=== PATIENT | female | born 1985 | race Caucasian/White ===

== ENCOUNTER 2016-05-24 16:18 | Emergency (ER) | payer BC ==
[2016-05-24] MEDS ORDERED: ONDANSETRON 4 MG TAB.RAPDIS PO ONE (16:33)
--- NOTE | 2016-05-24 16:35 | ER Document Report ---
ED Medical Screen (RME) - General Mode of Arrival: Ambulatory Information source: Patient TRAVEL OUTSIDE OF THE [place] IN LAST 30 DAYS: No <LESLIE PEARL - Last Filed: 05/24/16 16:32> <SABI RICK - Last Filed: 05/24/16 18:23> - General Stated Complaint: NAUSEA Notes: Patient presents to the emergency department with complaints of nausea vomiting and left-sided flank pain. With a history of kidney stones. Denies trauma reports low-grade fever. Contacted her urologist in [place] and was told to come here. Reports decreased urinary output even though she is drinking fluids. I have greeted and performed a rapid initial assessment of this patient. A comprehensive ED assessment and evaluation of the patient, analysis of test results and completion of the medical decision making process will be conducted by additional ED providers. (LESLIE PEARL) - Related Data Allergies/Adverse Reactions: clindamycin [Clindamycin] Allergy (Severe, Verified 05/24/16 16:31) rash Coconut * [Coconut] Allergy (Severe, Verified 05/24/16 16:31) throat swells Penicillins Allergy (Severe, Verified 05/24/16 16:31) rash Sulfa (Sulfonamide Antibiotics) Allergy (Severe, Verified 05/24/16 16:31) rash latex [Latex] Allergy (Unknown, Verified 05/24/16 16:31) rash,hands swell tramadol Allergy (Verified 05/24/16 16:31) BLACKBERRIES Allergy (Mild, Uncoded 05/24/16 16:31) MILD RASH ALL OVER Past Medical History - Past Medical History Cardiac Medical History: Reports: Hx Hypertension - MEDICATED Denies: Hx Congestive Heart Failure, Hx Coronary Artery Disease, Hx Heart Attack Pulmonary Medical History: Denies: Hx Asthma, Hx Bronchitis, Hx COPD, Hx Pneumonia, Hx Tuberculosis Neurological Medical History: Denies: Hx Cerebrovascular Accident, Hx Seizures Endocrine Medical History: Reports: Hx Hypothyroidism Renal/ Medical History: Reports: Hx Kidney Stones. Denies: Hx End Stage Renal Disease GI Medical History: Denies: Hx Cirrhosis, Hx Gastroesophageal Reflux Disease, Hx Hepatitis, Hx Hiatal Hernia, Hx Ulcer Musculoskeltal Medical History: Reports Hx Arthritis - RA, Denies Hx Multiple Sclerosis Psychiatric Medical History: Reports: Hx Depression Denies: Hx Bipolar Disorder, Hx Schizophrenia Infectious Medical History: Denies: Hx Hepatitis Past Surgical History: Reports: Hx Section - X3, Hx Cholecystectomy, Hx Orthopedic Surgery - L knee, Hx Tonsillectomy. Denies: Hx Hysterectomy, Hx Mastectomy, Hx Open Heart Surgery, Hx Pacemaker - Immunizations Immunizations up to date: Yes Hx Diphtheria, Pertussis, Tetanus Vaccination: Yes <LESLIE PEARL - Last Filed: 05/24/16 16:32> Course - Laboratory Result Diagrams: 05/24/16 16:35 05/24/16 16:35 - Diagnostic Test Radiology reviewed: Image reviewed, Reports reviewed <SABI RICK - Last Filed: 05/24/16 18:23> - Vital Signs Vital signs: Temp Pulse Resp BP Pulse Ox 98.7 F 80 20 137/82 H 100 05/24/16 16:30 05/24/16 16:30 05/24/16 16:45 05/24/16 16:30 05/24/16 16:30 - Laboratory Laboratory results interpreted by me: 05/24/16 05/24/16 16:35 16:35 WBC 3.2 L Hct 35.6 L RDW 14.1 H Absolute Neutrophils 1.6 L AST 41 H
[2016-05-24 16:54] LABS: APPEARANCE,URINE SLIGHTLY-CLOUDY; BILIRUBIN,URINE NEGATIVE (NEGATIVE); GLUCOSE, URINE NEGATIVE (NEGATIVE); KETONES,URINE NEGATIVE (NEGATIVE); LEUKOCYTE ESTERASE,URINE NEGATIVE (NEGATIVE); NITRITE,URINE NEGATIVE (NEGATIVE); PROTEIN,URINE NEGATIVE (NEGATIVE); URINE SPECIFIC GRAVITY 1.013; UROBILINOGEN,URINE NEGATIVE mg/dL (<2.0)
[2016-05-24 16:57] LABS: ABSOLUTE EOSINOPHILS # (AUTO) 0.1 10^3/uL (0.0-0.6); ABSOLUTE LYMPHOCYTES (AUTO) 1.1 10^3/uL (0.5-4.7); ABSOLUTE MONOCYTES (AUTO) 0.4 10^3/uL (0.1-1.4); ABSOLUTE NEUT (AUTO) 1.6 10^3/uL (1.7-8.2); BASOPHILS % (AUTO) 1.3 % (0-2); EOSINOPHILS % (AUTO) 2.1 % (0-6); HEMATOCRIT 35.6 % (36.0-47.0); HEMOGLOBIN 12.2 g/dL (12.0-15.5); LYMPHOCYTES % (AUTO) 35.2 % (13-45); MEAN CORPUSCULAR HEMOGLOBIN 31.6 pg (27.0-33.4); MEAN CORPUSCULAR HGB CONC 34.2 g/dL (32.0-36.0); MEAN CORPUSCULAR VOLUME 92 fl (80-97); MONOCYTES % (AUTO) 11.4 % (3-13); RED BLOOD COUNT 3.86 10^6/uL (3.72-5.28); RED CELL DISTRIBUTION WIDTH 14.1 % (11.5-14.0); WHITE BLOOD COUNT 3.2 10^3/uL (4.0-10.5)
[2016-05-24 17:10] LABS: ALANINE AMINOTRANSFERASE 48 U/L (9-52); ALBUMIN 4.1 g/dL (3.5-5.0); ALKALINE PHOSPHATASE 78 U/L (38-126); ANION GAP 9 (5-19); ASPARTATE AMINO TRANSFERASE 41 U/L (14-36); BILIRUBIN,TOTAL 0.6 mg/dL (0.2-1.3); BLOOD UREA NITROGEN 11 mg/dL (7-20); CALCIUM 9.1 mg/dL (8.4-10.2); CARBON DIOXIDE 26 mmol/L (22-30); CHLORIDE 107 mmol/L (98-107); CREATININE RESULT 1.01 mg/dL (0.52-1.25); GLUCOSE 98 mg/dL (75-110); POTASSIUM 4.2 mmol/L (3.6-5.0); SODIUM 142.1 mmol/L (137-145); TOTAL PROTEIN 6.9 g/dL (6.3-8.2)
[2016-05-24] MEDS ORDERED: ONDANSETRON HCL 8 MG TABLET PO ONE (17:25)
[2016-05-24] MEDS ORDERED: OXYCODONE-ACETAMINOPHEN 5-325 MG TABLET PO ONE (17:27)
[2016-05-24] MEDS ORDERED: METOCLOPRAMIDE HCL 10 MG TABLET PO ONE (17:27)
--- NOTE | 2016-05-24 18:25 | ER Document Report ---
ED GI/ - General Chief Complaint: Flank Pain Stated Complaint: NAUSEA Mode of Arrival: Ambulatory Notes: Patient is experiencing left "kidney pain" that began last night. She's had this same type of pain previously that have been attributable to kidney stones. She passed her last stone about 6 months ago. She's had internal procedures to remove stones. She's also had nausea and vomiting and thinks she may have had a fever last night. She contacted her urologist ([facility]) in [place] who advised her to come here for care this afternoon. Patients had her tubes tied and is also lumbar control pills to regulate her period. TRAVEL OUTSIDE OF THE [place] IN LAST 30 DAYS: No - Related Data Allergies/Adverse Reactions: clindamycin [Clindamycin] Allergy (Severe, Verified 05/24/16 16:31) rash Coconut * [Coconut] Allergy (Severe, Verified 05/24/16 16:31) throat swells Penicillins Allergy (Severe, Verified 05/24/16 16:31) rash Sulfa (Sulfonamide Antibiotics) Allergy (Severe, Verified 05/24/16 16:31) rash latex [Latex] Allergy (Unknown, Verified 05/24/16 16:31) rash,hands swell tramadol Allergy (Verified 05/24/16 16:31) BLACKBERRIES Allergy (Mild, Uncoded 05/24/16 16:31) MILD RASH ALL OVER Past Medical History - General Information source: Patient - Social History Smoking Status: Unknown if Ever Smoked Cigarette use (# per day): No Chew tobacco use (# tins/day): No Frequency of alcohol use: None Drug Abuse: None Family History: Reviewed & Not Pertinent Patient has suicidal ideation: No Patient has homicidal ideation: No - Past Medical History Cardiac Medical History: Reports: Hx Hypertension - MEDICATED Neurological Medical History: Denies: Hx Cerebrovascular Accident, Hx Seizures Endocrine Medical History: Reports: Hx Hypothyroidism Renal/ Medical History: Reports: Hx Kidney Stones Musculoskeltal Medical History: Reports Hx Arthritis - RA, Reports Hx Fibromyalgia, Reports Other - Has mixed connective tissue disease. Psychiatric Medical History: Reports: Hx Anxiety, Hx Depression Past Surgical History: Reports: Hx Section - X3, Hx Cholecystectomy, Hx Orthopedic Surgery - L knee, Hx Tonsillectomy, Hx Tubal Ligation - Immunizations Immunizations up to date: Yes Hx Diphtheria, Pertussis, Tetanus Vaccination: Yes Review of Systems - Review of Systems Notes: REVIEW OF SYSTEMS: CONSTITUTIONAL : Thinks he's had a fever. EENT: Denies eye, ear, nose or mouth or throat pain or other symptoms. CARDIOVASCULAR: Denies chest pain. RESPIRATORY: Denies cough, chest congestion, or shortness of breath. GASTROINTESTINAL: See history of present illness. GENITOURINARY: Denies difficulty or painful urinating, urinary frequency, blood in urine. MUSCULOSKELETAL: Denies back or neck pain. Denies joint pain or swelling. SKIN: Denies rash or skin lesions. NEUROLOGICAL: Denies LOC or altered mental status. Denies headache. Denies sensory loss or motor deficits. ALL OTHER SYSTEMS REVIEWED AND NEGATIVE. Physical Exam - Vital signs Vitals: Temp Pulse Resp BP Pulse Ox 98.7 F 80 20 137/82 H 100 05/24/16 16:30 05/24/16 16:30 05/24/16 16:30 05/24/16 16:30 05/24/16 16:30 Interpretation: Normal - Notes Notes: PHYSICAL EXAMINATION: GENERAL: Well-appearing, in no acute distress. Vital signs are all normal. HEAD: Atraumatic, normocephalic. NECK: Normal range of motion, supple. LUNGS: Breath sounds clear and equal bilaterally. HEART: Regular rate and rhythm without murmurs. ABDOMEN: Soft, nontender. No guarding or rebound. No masses felt. No bruits heard. BACK: Except for some mild left paralumbar muscle tenderness to palpate there is no tenderness throughout entire back. EXTREMITIES: Normal range of motion without pain. NEUROLOGICAL: Normal speech, normal gait. Normal sensory, motor, and reflex exams. Awake, alert, and oriented x3. Cranial nerves normal. SKIN: Warm, dry, no rashes. Course - Re-evaluation Re-evalutation: 05/24/16 18:25 Labs including urinalysis essentially normal. - Vital Signs Vital signs: Temp Pulse Resp BP Pulse Ox 98.4 F 87 16 128/85 H 98 05/24/16 18:38 05/24/16 18:38 05/24/16 18:38 05/24/16 18:38 05/24/16 18:38 - Laboratory Result Diagrams: 05/24/16 16:35 05/24/16 16:35 Laboratory results interpreted by me: 05/24/16 05/24/16 16:35 16:35 WBC 3.2 L Hct 35.6 L RDW 14.1 H Absolute Neutrophils 1.6 L AST 41 H - Diagnostic Test Radiology reviewed: Image reviewed, Reports reviewed - CT stone survey shows tiny, punctate, nonobstructing calcifications in the calyceal system of both kidneys. No ureteral stones or calcifications seen and no hydroureter present. Discharge - Discharge Clinical Impression: Left flank pain, Renal calcification Condition: Stable Disposition: HOME, SELF-CARE Additional Instructions: Flank Pain We weren't able to prove an exact cause for your flank pain. Pain in the flank can be caused by a muscle strain or spasm. Sometimes a kidney stone causes pain, but can't be found on our tests. Infection in the kidney should be evident on a urine test. Early shingles can occasionally cause flank pain, without the rash that proves the diagnosis. On rare occasions, disease of the pancreas, aorta, spleen, or colon can create pain in the flank. At this time, there's no evidence of a dangerous condition, and it seems safe for you to be at home. If the pain goes away and does not come back, no further testing will be needed. If pain persists, or becomes more severe, we may need to repeat some tests or order additional new testing. Blood in the urine, urgency to urinate frequently, and pain that radiates to the groin can indicate a kidney stone. Fever may mean that the pain is due to infection, either of the kidney or the colon (diverticulitis). If your pain is early shingles, you should develop an eruption of blisters in the painful area within a few days. Call the doctor or return if you have pain that is spreading or becoming more severe, pain that does not resolve with time, fever, or any other new symptoms. NORMAL EXAM AND WORKUP: At this time, your examination and workup show no significant abnormality. No significant abnormal physical findings are noted. All laboratory, EKG, and imaging (x-ray, CT scans, ultrasound) studies that were ordered show no significant abnormality. Although your examination and all studies that were ordered showed no significant abnormal finding, there are no examinations and no studies that are 100% accurate. There is always the possibility that some abnormality could exist and not be detected with physical examination or within the limits and capabilities of laboratory and other studies. You should return or follow up as you were instructed on your visit today for further evaluation if your symptoms do not resolve. ANTINAUSEA MEDICATION: You have been given a medication to suppress nausea and vomiting. This type of medication can be given as a shot, pill, or suppository. It will usually last for many hours. Pills and shots usually last six to eight hours, suppositories last about 12 hours. For the typical illness, only one or two doses of the medication may be necessary. Mild lightheadedness may occur. This type of medicine can cause drowsiness. Do not drive or operate dangerous machinery while under its influence. Do not mix with alcohol. See your doctor at once if you have muscle spasms or tightness, or uncontrollable motions (particularly of the neck, mouth, or jaw). Persistent vomiting or severe lightheadedness should also be evaluated by the physician. ORAL NARCOTIC MEDICATION: You have been given a prescription for pain control. This medication is a narcotic. It's best taken with food, as nausea can result if taken on an empty stomach. Don't operate machinery or drive within six hours of taking this medication. Do not combine this medicine with alcohol, or with any medication which can cause sedation (such as cold tablets or sleeping pills) unless you get permission from the physician. Narcotics tend to cause constipation. If possible, drink plenty of fluids and eat a diet high in fiber and fruits. FOLLOW-UP CARE: If you have been referred to a physician for follow-up care, call the physician s office for an appointment as you were instructed or within the next two days. If you experience worsening or a significant change in your symptoms, notify the physician immediately or return to the Emergency Department at any time for re-evaluation. Follow-up with your urologist ([facility]) in [place] tomorrow. Prescriptions: Ondansetron [Zofran Odt 4 mg Tablet] 1 - 2 tab PO Q4HP PRN #10 tab.rapdis PRN Reason: For Nausea/Vomiting Oxycodone HCl/Acetaminophen [Percocet 5-325 mg Tablet] 1 - 2 tab PO Q4HP PRN # 10 tablet PRN Reason: Referrals: TOÑO GALLAGHER MD [Primary Care Provider] - Follow up as needed
[2016-05-24 18:41] VITALS: BP 128/85
== END 2016-05-24 18:42 | disposition home or self-care (01) ==
LOC: ER 16:18
DX: N28.89 Other specified disorders of kidney and ureter (principal); R11.2 Nausea with vomiting, unspecified; R10.9 Unspecified abdominal pain; M79.7 Fibromyalgia; I10 Essential (primary) hypertension; E03.9 Hypothyroidism, unspecified; Z87.442 Personal history of urinary calculi; Z98.51 Tubal ligation status; Z79.3 Long term (current) use of hormonal contraceptives; Z88.3 Allergy status to other anti-infective agents; Z88.0 Allergy status to penicillin; Z88.2 Allergy status to sulfonamides; Z91.040 Latex allergy status; Z90.49 Acquired absence of other specified parts of digestive tract
CPT/HCPCS: 99284; 36415; 84703; 85025; 80053; 81001; 76380; S0119 ×2

== ENCOUNTER 2016-09-12 13:07 | Emergency (ER) | payer BC ==
[2016-09-12 13:23] VITALS: BP 128/90
[2016-09-12] MEDS ORDERED: METOCLOPRAMIDE HCL INJ/PF 10 MG/2 ML SDV IV ONE (13:47)
[2016-09-12] MEDS ORDERED: KETOROLAC TROMETHAMINE INJ/PF 30 MG/1 ML SDV IV ONE (13:47)
[2016-09-12] MEDS ORDERED: DIPHENHYDRAMINE HCL 50 MG/ML VIAL IV ONE (13:47)
[2016-09-12] MEDS ORDERED: NORMAL SALINE 1000 ML 1,000 ML IV ONE (13:47)
--- NOTE | 2016-09-12 13:56 | ER Document Report ---
ED Headache - General Chief Complaint: Nausea/Vomiting Stated Complaint: VOMITING Time Seen by Provider: 09/12/16 13:42 Notes: The patient is a 30-year-old female, past medical history fibromyalgia, connective tissue disease, chronic pain, migraines, presents with usual frontal headache that started yesterday. She is also having nausea and feels like her left side is weak. She denies vomiting, abdominal pain, blurry vision, neck stiffness, fevers, chest pain, shortness of breath, numbness or tingling. TRAVEL OUTSIDE OF THE [place] IN LAST 30 DAYS: No - Related Data Allergies/Adverse Reactions: clindamycin [Clindamycin] Allergy (Severe, Verified 09/12/16 13:18) rash Coconut * [Coconut] Allergy (Severe, Verified 09/12/16 13:18) throat swells Penicillins Allergy (Severe, Verified 09/12/16 13:18) rash Sulfa (Sulfonamide Antibiotics) Allergy (Severe, Verified 09/12/16 13:18) rash latex [Latex] Allergy (Unknown, Verified 09/12/16 13:18) rash,hands swell tramadol Allergy (Verified 09/12/16 13:18) BLACKBERRIES Allergy (Mild, Uncoded 09/12/16 13:18) MILD RASH ALL OVER Past Medical History - General Information source: Patient - Social History Smoking Status: Never Smoker Chew tobacco use (# tins/day): No Frequency of alcohol use: None Drug Abuse: None Family History: Reviewed & Not Pertinent Patient has suicidal ideation: No Patient has homicidal ideation: No - Past Medical History Cardiac Medical History: Reports: Hx Hypertension - MEDICATED Denies: Hx Congestive Heart Failure, Hx Coronary Artery Disease, Hx Heart Attack Pulmonary Medical History: Denies: Hx Asthma, Hx Bronchitis, Hx COPD, Hx Pneumonia, Hx Tuberculosis Neurological Medical History: Denies: Hx Cerebrovascular Accident, Hx Seizures Endocrine Medical History: Reports: Hx Hypothyroidism Renal/ Medical History: Reports: Hx Kidney Stones. Denies: Hx End Stage Renal Disease, Hx Peritoneal Dialysis GI Medical History: Denies: Hx Cirrhosis, Hx Gastroesophageal Reflux Disease, Hx Hepatitis, Hx Hiatal Hernia, Hx Ulcer Musculoskeltal Medical History: Reports Hx Arthritis - RA, Reports Hx Fibromyalgia, Denies Hx Multiple Sclerosis Psychiatric Medical History: Reports: Hx Anxiety, Hx Depression Denies: Hx Bipolar Disorder, Hx Schizophrenia Infectious Medical History: Denies: Hx Hepatitis Past Surgical History: Reports: Hx Section - X3, Hx Cholecystectomy, Hx Orthopedic Surgery - L knee, Hx Tonsillectomy, Hx Tubal Ligation. Denies: Hx Hysterectomy, Hx Mastectomy, Hx Open Heart Surgery, Hx Pacemaker - Immunizations Immunizations up to date: Yes Hx Diphtheria, Pertussis, Tetanus Vaccination: Yes Review of Systems - Review of Systems Notes: REVIEW OF SYSTEMS: CONSTITUTIONAL: -fevers, -chills EENT: -eye pain, -difficulty swallowing, -nasal congestion CARDIOVASCULAR:-chest pain, -syncope. RESPIRATORY: -cough, -SOB GASTROINTESTINAL: -abdominal pain, +nausea, -vomiting, -diarrhea GENITOURINARY: -dysuria, -hematuria MUSCULOSKELETAL: -back pain, -neck pain SKIN: -rash or skin lesions. HEMATOLOGIC: -easy bruising or bleeding. LYMPHATIC: -swollen, enlarged glands. NEUROLOGICAL: -altered mental status or loss of consciousness, +headache PSYCHIATRIC: -anxiety, -depression. ALL OTHER SYSTEMS REVIEWED AND NEGATIVE. Physical Exam - Vital signs Vitals: Temp Pulse Resp BP Pulse Ox 98.2 F 99 16 128/90 H 99 09/12/16 13:22 09/12/16 13:22 09/12/16 13:22 09/12/16 13:22 09/12/16 13:22 - Notes Notes: PHYSICAL EXAMINATION: GENERAL: Well-appearing, well-nourished and in no acute distress. HEAD: Atraumatic, normocephalic. EYES: Pupils equal round and reactive to light, extraocular movements intact, sclera anicteric, conjunctiva are normal. ENT: nares patent, oropharynx clear without exudates. Moist mucous membranes. NECK: Normal range of motion, supple without lymphadenopathy LUNGS: Breath sounds clear to auscultation bilaterally and equal. No wheezes rales or rhonchi. HEART: Regular rate and rhythm without murmurs ABDOMEN: Soft, nontender, normoactive bowel sounds. No guarding, no rebound. No masses appreciated. EXTREMITIES: Normal range of motion, no pitting or edema. No cyanosis. NEUROLOGICAL: Cranial nerves grossly intact. Normal speech, normal gait. Normal sensory and motor exams. 5/5 strength in all 4 extremities. PSYCH: Normal mood, normal affect. SKIN: Warm, Dry, normal turgor, no rashes or lesions noted. Course - Re-evaluation Re-evalutation: Patient headache is exactly the same as her prior headaches. After headache cocktail, patient feels much better. She does not have any loss of strength on exam. Do not suspect meningitis, ICH or SAH at this time. Instructed her to follow-up with her primary care physician for further evaluation and treatment. She will take anti-inflammatories to help prevent a rebound headache. - Vital Signs Vital signs: Temp Pulse Resp BP Pulse Ox 98.2 F 99 16 128/90 H 99 09/12/16 13:22 09/12/16 13:22 09/12/16 13:22 09/12/16 13:22 09/12/16 13:22 Discharge - Discharge Clinical Impression: Headache Qualifiers: Headache type: unspecified Headache chronicity pattern: chronic headache Intractability: not intractable Qualified Code(s): R51 - Headache Condition: Stable Disposition: HOME, SELF-CARE Additional Instructions: HEADACHE: The physician does not feel that the headache you are experiencing has a serious underlying cause. Most headaches are due to emotional stress, with resultant muscle tension (tension headache). Occasionally, headaches are secondary to changes in the blood vessels of the scalp (vascular headache and migraine headache). Sometimes, a headache is the first symptom of another developing illness, such as a viral infection. You have no evidence of stroke, bleeding, meningitis, or other serious cause of your headache. The treatment of headaches varies with the severity and cause of the pain. Not all headaches need pain shots. In fact, there is evidence that using narcotics for headaches may make them worse in the long run. The physician will determine the therapy that's in your best interest. If you develop a fever, if the headache is different from any you've previously experienced, or if the headache progressively worsens, then call your physician at once or go to the emergency room. REGLAN (METOCLOPRAMIDE): Reglan has been prescribed. This medicine affects the stomach and intestines. It can be used to treat nausea and vomiting, to prevent reflux of stomach acid up into the esophagus, or to increase the contractions of the stomach and intestines. It is often prescribed for esophagitis, and for paralysis of the stomach in diabetics. Reglan can cause either mild restlessness or drowsiness. You should contact the doctor at once if you become extremely restless, anxious, or cannot sleep, or if you develop uncontrollable motions of the lips, tongue, or jaw. Do not take alcohol with this medicine. Do not drive or operate machinery until you have been taking this medicine long enough to know how it affects you. Call the doctor if you develop abdominal pains, lightheadedness, black stool, or blood in the stool or vomitus. USE OF DIPHENHYDRAMINE: Diphenhydramine (Benadryl) is an antihistamine and has been recommended to help treat your headache and to prevent side effects of other medications used to treat headaches. The medication can be repeated four times daily. Age Elixir (12.5 mg/tsp) 25 mg pill adult 1-2 tabs Antihistamines may cause drowsiness, especially with the first dose. Do not operate machinery or drive while under the effects of the medication. Do not combine the medication with alcohol, or with any other medication without talking to your doctor. TORADOL INJECTION: You have been given an injection of ketorolac tromethamine (Toradol). This is an excellent, safe drug for pain control. It also has potent antiinflammatory action. You should have significant pain relief within about one hour. Toradol is not addicting and is non-sedating. It does not interfere with driving or work. Call or return if you develop itching, hives, shortness of breath, or rash. FOLLOW-UP CARE: If you have been referred to a physician for follow-up care, call the physician s office for an appointment as you were instructed or within the next two days. If you experience worsening or a significant change in your symptoms, notify the physician immediately or return to the Emergency Department at any time for re-evaluation.
== END 2016-09-12 15:27 | disposition home or self-care (01) ==
LOC: ER 13:07
DX: R51 Headache (principal); R11.0 Nausea; I10 Essential (primary) hypertension; Z88.1 Allergy status to other antibiotic agents; Z88.0 Allergy status to penicillin; Z88.2 Allergy status to sulfonamides; Z88.5 Allergy status to narcotic agent; Z91.018 Allergy to other foods; Z91.040 Latex allergy status
CPT/HCPCS: 99283; 96374; 96375; J1200; J1885; J2765; J7030

== ENCOUNTER → 2016-09-22 | Outpatient (CLI) | payer BC ==
[2016-09-22 12:26] LABS: ABSOLUTE EOSINOPHILS # (AUTO) 0.1 10^3/uL (0.0-0.6); ABSOLUTE LYMPHOCYTES (AUTO) 0.7 10^3/uL (0.5-4.7); ABSOLUTE MONOCYTES (AUTO) 0.1 10^3/uL (0.1-1.4); ABSOLUTE NEUT (AUTO) 1.5 10^3/uL (1.7-8.2); BASOPHILS % (AUTO) 1.3 % (0-2); EOSINOPHILS % (AUTO) 3.4 % (0-6); HEMOGLOBIN 12.9 g/dL (12.0-15.5); HGB HCT DIFFERENCE 0.7; LYMPHOCYTES % (AUTO) 26.9 % (13-45); MEAN CORPUSCULAR HEMOGLOBIN 32.3 pg (27.0-33.4); MEAN CORPUSCULAR HGB CONC 33.9 g/dL (32.0-36.0); MEAN CORPUSCULAR VOLUME 95 fl (80-97); MONOCYTES % (AUTO) 5.8 % (3-13); RED BLOOD COUNT 3.98 10^6/uL (3.72-5.28); RED CELL DISTRIBUTION WIDTH 14.1 % (11.5-14.0); SEGMENTED NEUTROPHILS % (AUTO) 62.6 % (42-78); WHITE BLOOD COUNT 2.5 10^3/uL (4.0-10.5)
[2016-09-22 12:48] LABS: ALANINE AMINOTRANSFERASE 37 U/L (9-52); ALKALINE PHOSPHATASE 95 U/L (38-126); ASPARTATE AMINO TRANSFERASE 29 U/L (14-36); BILIRUBIN,DIRECT 0.4 mg/dL (0.0-0.4); BILIRUBIN,TOTAL 0.6 mg/dL (0.2-1.3); C-REACTIVE PROTEIN 11.9 mg/L (<10.0); CREATININE RESULT 1.07 mg/dL (0.52-1.25); TOTAL PROTEIN 7.1 g/dL (6.3-8.2)
[2016-09-22 13:11] LABS: ERYTHROCYTE SEDIMENTATION RATE 5 mm/hr (0-20)
== END ==
LOC: OD 10:45
PROVIDERS: ATTEND Internal Medicine Rheumatology
DX: M06.09 Rheumatoid arthritis without rheumatoid factor, multiple sites (principal); R79.89 Other specified abnormal findings of blood chemistry; Z79.899 Other long term (current) drug therapy
CPT/HCPCS: 36415; 80076; 82565; 85025; 85652; 86140

== ENCOUNTER 2016-09-26 19:02 | Emergency (ER) | payer BC ==
--- NOTE | 2016-09-26 19:42 | ER Document Report ---
HPI - HPI Patient complains to provider of: right foot pain Pain Level: 4 Context: 30 yo female c/o pain to right foot. was pushing lawnmower up a ditch, lawnmower rolled back and over top of foot. Associated Symptoms: None Exacerbated by: Movement, Walking Relieved by: Denies Similar symptoms previously: No Recently seen / treated by doctor: No - ROS Systems Reviewed and Negative: Yes All other systems reviewed and negative - CARDIOVASCULAR Cardiovascular: DENIES: Chest pain - REPRODUCTIVE Reproductive: DENIES: : - DERM Skin Color: [place], Erythema Past Medical History - General Information source: Patient - Social History Smoking Status: Never Smoker Frequency of alcohol use: None Drug Abuse: None Lives with: Family Family History: Reviewed & Not Pertinent - Past Medical History Cardiac Medical History: Reports: Hx Hypertension - MEDICATED Denies: Hx Congestive Heart Failure, Hx Coronary Artery Disease, Hx Heart Attack Pulmonary Medical History: Denies: Hx Asthma, Hx Bronchitis, Hx COPD, Hx Pneumonia, Hx Tuberculosis Neurological Medical History: Denies: Hx Cerebrovascular Accident, Hx Seizures Endocrine Medical History: Reports: Hx Hypothyroidism Renal/ Medical History: Reports: Hx Kidney Stones. Denies: Hx End Stage Renal Disease, Hx Peritoneal Dialysis GI Medical History: Denies: Hx Cirrhosis, Hx Gastroesophageal Reflux Disease, Hx Hepatitis, Hx Hiatal Hernia, Hx Ulcer Musculoskeltal Medical History: Reports Hx Arthritis - RA, Reports Hx Fibromyalgia, Denies Hx Multiple Sclerosis Psychiatric Medical History: Reports: Hx Anxiety, Hx Depression Denies: Hx Bipolar Disorder, Hx Schizophrenia Infectious Medical History: Denies: Hx Hepatitis Past Surgical History: Reports: Hx Section - X3, Hx Cholecystectomy, Hx Orthopedic Surgery - L knee, Hx Tonsillectomy, Hx Tubal Ligation. Denies: Hx Hysterectomy, Hx Mastectomy, Hx Open Heart Surgery, Hx Pacemaker - Immunizations Immunizations up to date: Yes Hx Diphtheria, Pertussis, Tetanus Vaccination: Yes Vertical Provider Document - CONSTITUTIONAL Agree With Documented VS: Yes Exam Limitations: No Limitations General Appearance: WD/WN, No Apparent Distress - INFECTION CONTROL TRAVEL OUTSIDE OF THE [place] IN LAST 30 DAYS: No - HEENT HEENT: Atraumatic, PERRLA - NECK Neck: Normal Inspection, Supple - RESPIRATORY Respiratory: Breath Sounds Normal, No Respiratory Distress O2 Sat by Pulse Oximetry: 100 - MUSCULOSKELETAL/EXTREMETIES Musculoskeletal/Extremeties: Tender, Eccymosis - right dorsal foot - NEURO Level of Consciousness: Awake, Alert, Appropriate Motor/Sensory: No Motor Deficit - DERM Integumentary: Warm, Dry Course - Re-evaluation Re-evalutation: 09/26/16 20:17 xray negative. results reviewed with patient. daljit wrap applied and crutch instruction given. pt stable for discharge - Vital Signs Vital signs: Temp Pulse Resp BP Pulse Ox 98.2 F 91 16 138/94 H 100 09/26/16 19:10 09/26/16 19:10 09/26/16 19:10 09/26/16 19:10 09/26/16 19:10 Procedures - Immobilization right foot Pre-Proc Neuro Vasc Exam: Normal Immobilizer type: Daljit wrap Performed by: PCT Post-Proc Neuro Vasc Exam: Normal Alignment checked and good: Yes Discharge - Discharge Clinical Impression: Contusion, foot Qualifiers: Encounter type: initial encounter Laterality: right Qualified Code(s): S90.31XA - Contusion of right foot, initial encounter Condition: Stable Disposition: HOME, SELF-CARE Instructions: Contusion ([facility]), Hematoma ([facility]), Ice & Elevation ([facility]), Ibuprofen (General) ([facility]) Additional Instructions: your xrays were negative for fracture today ice and elevate your foot wear daljit wrap for comfort and support motrin for discomfort follow up with you primary care is pain persists more than 10 days Prescriptions: Ibuprofen [Motrin 800 Mg Tablet] 800 mg PO Q6H #20 tablet Forms: Elevated Blood Pressure
--- NOTE | 2016-09-26 20:20 | RADIOLOGY REPORT (SQ) ---
EXAM DESCRIPTION: FOOT RIGHT COMPLETE COMPLETED DATE/TIME: 09/26/2016 8:11 pm REASON FOR STUDY: injury. hit with lawnmower COMPARISON: None. NUMBER OF VIEWS: Three views right foot. LIMITATIONS: None. FINDINGS: Normal bone density. Slight deformity with cortical thickening of the mid 3rd metatarsal. This is consistent with previous fracture which has healed. No acute fracture or bone lesion. No subluxation or dislocation or radiopaque foreign body. No joint effusion. OTHER: No other significant finding. IMPRESSION: Old 3rd metatarsal fracture. No acute abnormality evident. TECHNICAL DOCUMENTATION: JOB ID: [id number]
[2016-09-26 20:51] VITALS: BP 129/80
== END 2016-09-26 20:51 | disposition home or self-care (01) ==
LOC: ER 19:02
DX: S90.31XA Contusion of right foot, initial encounter (principal); M79.671 Pain in right foot; X58.XXXA Exposure to other specified factors, initial encounter
CPT/HCPCS: 99283

== ENCOUNTER → 2016-10-20 | Outpatient (CLI) | payer BC ==
[2016-10-20 11:44] LABS: ABSOLUTE EOSINOPHILS # (AUTO) 0.1 10^3/uL (0.0-0.6); ABSOLUTE LYMPHOCYTES (AUTO) 1.1 10^3/uL (0.5-4.7); ABSOLUTE MONOCYTES (AUTO) 0.3 10^3/uL (0.1-1.4); ABSOLUTE NEUT (AUTO) 1.8 10^3/uL (1.7-8.2); BASOPHILS % (AUTO) 0.8 % (0-2); HEMATOCRIT 34.1 % (36.0-47.0); HEMOGLOBIN 12.1 g/dL (12.0-15.5); HGB HCT DIFFERENCE 2.2; LYMPHOCYTES % (AUTO) 32.1 % (13-45); MEAN CORPUSCULAR HEMOGLOBIN 32.9 pg (27.0-33.4); MEAN CORPUSCULAR HGB CONC 35.7 g/dL (32.0-36.0); MEAN CORPUSCULAR VOLUME 92 fl (80-97); MONOCYTES % (AUTO) 8.1 % (3-13); RED BLOOD COUNT 3.69 10^6/uL (3.72-5.28); RED CELL DISTRIBUTION WIDTH 13.3 % (11.5-14.0); WHITE BLOOD COUNT 3.3 10^3/uL (4.0-10.5)
[2016-10-20 12:03] LABS: ALANINE AMINOTRANSFERASE 33 U/L (9-52); ALBUMIN 3.6 g/dL (3.5-5.0); ALKALINE PHOSPHATASE 99 U/L (38-126); ASPARTATE AMINO TRANSFERASE 29 U/L (14-36); BILIRUBIN,DIRECT 0.5 mg/dL (0.0-0.4); BILIRUBIN,TOTAL 0.6 mg/dL (0.2-1.3); C-REACTIVE PROTEIN 29.1 mg/L (<10.0); CREATININE RESULT 1.13 mg/dL (0.52-1.25); TOTAL PROTEIN 6.6 g/dL (6.3-8.2)
[2016-10-20 12:12] LABS: ERYTHROCYTE SEDIMENTATION RATE 15 mm/hr (0-20)
== END ==
LOC: OD 10:29
PROVIDERS: ATTEND Internal Medicine Rheumatology
DX: D72.819 Decreased white blood cell count, unspecified (principal)
CPT/HCPCS: 36415; 80076; 82565; 85025; 85652; 86140

== ENCOUNTER → 2016-11-19 | Outpatient (CLI) | payer BC ==
[2016-11-19 12:57] LABS: ABSOLUTE EOSINOPHILS # (AUTO) 0.1 10^3/uL (0.0-0.6); ABSOLUTE LYMPHOCYTES (AUTO) 1.4 10^3/uL (0.5-4.7); ABSOLUTE MONOCYTES (AUTO) 0.5 10^3/uL (0.1-1.4); ABSOLUTE NEUT (AUTO) 2.8 10^3/uL (1.7-8.2); BASOPHILS % (AUTO) 0.7 % (0-2); EOSINOPHILS % (AUTO) 1.6 % (0-6); HEMATOCRIT 37.4 % (36.0-47.0); HEMOGLOBIN 13.1 g/dL (12.0-15.5); HGB HCT DIFFERENCE 1.9; LYMPHOCYTES % (AUTO) 29.6 % (13-45); MEAN CORPUSCULAR HEMOGLOBIN 32.7 pg (27.0-33.4); MEAN CORPUSCULAR HGB CONC 35.1 g/dL (32.0-36.0); MEAN CORPUSCULAR VOLUME 93 fl (80-97); MONOCYTES % (AUTO) 9.8 % (3-13); RED BLOOD COUNT 4.02 10^6/uL (3.72-5.28); RED CELL DISTRIBUTION WIDTH 12.9 % (11.5-14.0); SEGMENTED NEUTROPHILS % (AUTO) 58.3 % (42-78); WHITE BLOOD COUNT 4.7 10^3/uL (4.0-10.5)
[2016-11-19 13:20] LABS: ALANINE AMINOTRANSFERASE 46 U/L (9-52); ALBUMIN 4.3 g/dL (3.5-5.0); ALKALINE PHOSPHATASE 105 U/L (38-126); ASPARTATE AMINO TRANSFERASE 36 U/L (14-36); BILIRUBIN,DIRECT 0.5 mg/dL (0.0-0.4); BILIRUBIN,TOTAL 0.7 mg/dL (0.2-1.3); CREATININE RESULT 1.21 mg/dL (0.52-1.25); TOTAL PROTEIN 7.3 g/dL (6.3-8.2)
[2016-11-19 13:27] LABS: C-REACTIVE PROTEIN < 5.0 mg/L (<10.0)
[2016-11-19 13:35] LABS: ERYTHROCYTE SEDIMENTATION RATE 2 mm/hr (0-20)
== END ==
LOC: OD 12:11
PROVIDERS: ATTEND Internal Medicine Rheumatology
DX: M06.09 Rheumatoid arthritis without rheumatoid factor, multiple sites (principal); R79.89 Other specified abnormal findings of blood chemistry; Z79.899 Other long term (current) drug therapy
CPT/HCPCS: 36415; 80076; 82565; 85025; 85652; 86140

== ENCOUNTER → 2016-12-10 | Outpatient (CLI) | payer BC | LOC: OD 14:15 | PROVIDERS: ATTEND Nurse Practitioner Acute Care | DX: L98.9 Disorder of the skin and subcutaneous tissue, unspecified (principal) | CPT/HCPCS: 87070; 87205 ==

== ENCOUNTER → 2016-12-22 | Outpatient (CLI) | payer BC ==
[2016-12-22 10:47] LABS: ABSOLUTE EOSINOPHILS # (AUTO) 0.1 10^3/uL (0.0-0.6); ABSOLUTE LYMPHOCYTES (AUTO) 0.7 10^3/uL (0.5-4.7); ABSOLUTE MONOCYTES (AUTO) 0.3 10^3/uL (0.1-1.4); ABSOLUTE NEUT (AUTO) 3.1 10^3/uL (1.7-8.2); BASOPHILS % (AUTO) 0.5 % (0-2); EOSINOPHILS % (AUTO) 3.1 % (0-6); HEMATOCRIT 38.7 % (36.0-47.0); HEMOGLOBIN 13.3 g/dL (12.0-15.5); HGB HCT DIFFERENCE 1.2; LYMPHOCYTES % (AUTO) 17.4 % (13-45); MEAN CORPUSCULAR HEMOGLOBIN 31.7 pg (27.0-33.4); MEAN CORPUSCULAR HGB CONC 34.4 g/dL (32.0-36.0); MEAN CORPUSCULAR VOLUME 92 fl (80-97); MONOCYTES % (AUTO) 6.6 % (3-13); SEGMENTED NEUTROPHILS % (AUTO) 72.4 % (42-78); WHITE BLOOD COUNT 4.3 10^3/uL (4.0-10.5)
[2016-12-22 11:10] LABS: ALANINE AMINOTRANSFERASE 47 U/L (9-52); ALBUMIN 4.2 g/dL (3.5-5.0); ALKALINE PHOSPHATASE 110 U/L (38-126); ASPARTATE AMINO TRANSFERASE 35 U/L (14-36); BILIRUBIN,DIRECT 0.4 mg/dL (0.0-0.4); BILIRUBIN,TOTAL 0.5 mg/dL (0.2-1.3); C-REACTIVE PROTEIN 15.2 mg/L (<10.0); CREATININE RESULT 1.07 mg/dL (0.52-1.25)
[2016-12-22 11:24] LABS: FREE T3 3.41 pg/mL (2.77-5.27)
[2016-12-22 11:27] LABS: ERYTHROCYTE SEDIMENTATION RATE 4 mm/hr (0-20)
[2016-12-22 11:38] LABS: THYROID STIMULATING HORMONE 4.38 uIU/mL (0.47-4.68)
== END ==
LOC: OD 09:52
PROVIDERS: ATTEND Internal Medicine Rheumatology
DX: M06.09 Rheumatoid arthritis without rheumatoid factor, multiple sites (principal); R79.89 Other specified abnormal findings of blood chemistry; Z79.899 Other long term (current) drug therapy
CPT/HCPCS: 36415; 80076; 82565; 84439; 84443; 84481; 85025; 85652; 86140

== ENCOUNTER → 2016-12-29 | Outpatient (CLI) | payer BC ==
[2016-12-29 09:54] LABS: HEMATOCRIT 36.5 % (36.0-47.0); HEMOGLOBIN 12.9 g/dL (12.0-15.5); HGB HCT DIFFERENCE 2.2; MEAN CORPUSCULAR HGB CONC 35.3 g/dL (32.0-36.0); MEAN CORPUSCULAR VOLUME 91 fl (80-97); RED BLOOD COUNT 4.02 10^6/uL (3.72-5.28); RED CELL DISTRIBUTION WIDTH 13.3 % (11.5-14.0); WHITE BLOOD COUNT 5.2 10^3/uL (4.0-10.5)
[2016-12-29 10:15] LABS: ALANINE AMINOTRANSFERASE 33 U/L (9-52); ALBUMIN 3.9 g/dL (3.5-5.0); ALKALINE PHOSPHATASE 107 U/L (38-126); ANION GAP 12 (5-19); ASPARTATE AMINO TRANSFERASE 24 U/L (14-36); BILIRUBIN,DIRECT 0.4 mg/dL (0.0-0.4); BILIRUBIN,TOTAL 0.5 mg/dL (0.2-1.3); BLOOD UREA NITROGEN 10 mg/dL (7-20); CALCIUM 8.7 mg/dL (8.4-10.2); CARBON DIOXIDE 25 mmol/L (22-30); CHLORIDE 107 mmol/L (98-107); CREATININE RESULT 1.03 mg/dL (0.52-1.25); GLUCOSE 81 mg/dL (75-110); POTASSIUM 4.2 mmol/L (3.6-5.0); SODIUM 143.7 mmol/L (137-145); TOTAL PROTEIN 6.6 g/dL (6.3-8.2); TRIGLYCERIDES 113 mg/dL (<150)
[2016-12-29 10:26] LABS: DIRECT LDL 80 mg/dL (<100)
== END ==
LOC: OD 08:52
PROVIDERS: ATTEND Psychiatry & Neurology Psychiatry
DX: F32.2 Major depressive disorder, single episode, severe without psychotic features (principal)
CPT/HCPCS: 36415; 80048; 80076; 83036; 83721; 84478; 85027

== ENCOUNTER 2017-01-20 18:29 | Inpatient (IN) | payer BC ==
--- NOTE | 2017-01-20 19:00 | ER Document Report ---
ED Medical Screen (RME) - General Chief Complaint: Congestion Stated Complaint: FEVER Time Seen by Provider: 01/20/17 18:50 Notes: This 31-year-old female patient has had URI symptoms for the past couple weeks, she has had Rocephin injections and been put on cefdinir. She was in the emergency room 2 days ago complaining of elevated blood pressure which resolved and she was discharged home. She had outpatient lab work done yesterday showing a white blood cell count of 1200 with 2 segmented neutrophils, 44 lymphocytes, 14 atypical lymphocytes, 28 monocytes, 10 eosinophils. She did have her methotrexate and Rituxan stopped recently for this problem. She does have a mixed connective tissue disorder including lupus, rheumatoid arthritis, and another which she cannot remember the name. She also suffers from fibromyalgia. Today her main complaint is pain in both sides of her neck, pressure in her face and fever. She also has a headache. I have greeted and performed a rapid initial assessment of this patient. A comprehensive ED assessment and evaluation of the patient, analysis of test results and completion of the medical decision making process will be conducted by additional ED providers. TRAVEL OUTSIDE OF THE [place] IN LAST 30 DAYS: No - Related Data Allergies/Adverse Reactions: clindamycin [Clindamycin] Allergy (Severe, Verified 01/20/17 18:41) rash Coconut * [Coconut] Allergy (Severe, Verified 01/20/17 18:41) throat swells Penicillins Allergy (Severe, Verified 01/20/17 18:41) rash Sulfa (Sulfonamide Antibiotics) Allergy (Severe, Verified 01/20/17 18:41) rash latex [Latex] Allergy (Unknown, Verified 01/20/17 18:41) rash,hands swell tramadol Allergy (Verified 01/20/17 18:41) BLACKBERRIES Allergy (Mild, Uncoded 01/20/17 18:41) MILD RASH ALL OVER Past Medical History - Past Medical History Cardiac Medical History: Reports: Hx Hypertension - MEDICATED Denies: Hx Congestive Heart Failure, Hx Coronary Artery Disease, Hx Heart Attack Pulmonary Medical History: Denies: Hx Asthma, Hx Bronchitis, Hx COPD, Hx Pneumonia, Hx Tuberculosis Neurological Medical History: Denies: Hx Cerebrovascular Accident, Hx Seizures Endocrine Medical History: Reports: Hx Hypothyroidism Renal/ Medical History: Reports: Hx Kidney Stones. Denies: Hx End Stage Renal Disease, Hx Peritoneal Dialysis GI Medical History: Denies: Hx Cirrhosis, Hx Gastroesophageal Reflux Disease, Hx Hepatitis, Hx Hiatal Hernia, Hx Ulcer Musculoskeltal Medical History: Reports Hx Arthritis - RA, Reports Hx Fibromyalgia, Denies Hx Multiple Sclerosis Psychiatric Medical History: Reports: Hx Anxiety, Hx Depression Denies: Hx Bipolar Disorder, Hx Schizophrenia Infectious Medical History: Denies: Hx Hepatitis Past Surgical History: Reports: Hx Section - X3, Hx Cholecystectomy, Hx Orthopedic Surgery - L knee, Hx Tonsillectomy, Hx Tubal Ligation. Denies: Hx Hysterectomy, Hx Mastectomy, Hx Open Heart Surgery, Hx Pacemaker - Immunizations Immunizations up to date: Yes Hx Diphtheria, Pertussis, Tetanus Vaccination: Yes Physical Exam - Vital signs Vitals: Temp Pulse Resp BP Pulse Ox 100.2 F 117 H 18 145/90 H 99 01/20/17 18:41 01/20/17 18:41 01/20/17 18:41 01/20/17 18:41 01/20/17 18:41 Course - Vital Signs Vital signs: Temp Pulse Resp BP Pulse Ox 100.2 F 117 H 18 145/90 H 99 01/20/17 18:41 01/20/17 18:41 01/20/17 18:41 01/20/17 18:41 01/20/17 18:41
[2017-01-20] MEDS ORDERED: KETOROLAC TROMETHAMINE 60 MG/2 ML SDV IM ONE (19:44)
[2017-01-20 19:56] LABS: HEMATOCRIT 39.6 % (36.0-47.0); HEMOGLOBIN 14.1 g/dL (12.0-15.5); HGB HCT DIFFERENCE 2.7; MEAN CORPUSCULAR HEMOGLOBIN 32.2 pg (27.0-33.4); MEAN CORPUSCULAR HGB CONC 35.6 g/dL (32.0-36.0); MEAN CORPUSCULAR VOLUME 91 fl (80-97); RED BLOOD COUNT 4.37 10^6/uL (3.72-5.28); RED CELL DISTRIBUTION WIDTH 12.8 % (11.5-14.0)
[2017-01-20 20:09] LABS: ALANINE AMINOTRANSFERASE 32 U/L (9-52); ALBUMIN 4.6 g/dL (3.5-5.0); ALKALINE PHOSPHATASE 131 U/L (38-126); ANION GAP 16 (5-19); ASPARTATE AMINO TRANSFERASE 29 U/L (14-36); BILIRUBIN,DIRECT 0.4 mg/dL (0.0-0.4); BILIRUBIN,TOTAL 0.6 mg/dL (0.2-1.3); BLOOD UREA NITROGEN 11 mg/dL (7-20); C-REACTIVE PROTEIN 73.6 mg/L (<10.0); CALCIUM 9.4 mg/dL (8.4-10.2); CARBON DIOXIDE 27 mmol/L (22-30); CHLORIDE 95 mmol/L (98-107); CREATININE RESULT 1.08 mg/dL (0.52-1.25); GLUCOSE 96 mg/dL (75-110); POTASSIUM 3.6 mmol/L (3.6-5.0); SODIUM 137.6 mmol/L (137-145); TOTAL PROTEIN 7.7 g/dL (6.3-8.2)
[2017-01-20 20:34] LABS: BASOPHILS % (MANUAL) 0 % (0-2); EOSINOPHILS % (MANUAL) 4 % (0-6); LYMPHOCYTES % (MANUAL) 60 % (13-45); TOTAL CELLS COUNTED 50
[2017-01-20 20:37] LABS: OVALOCYTES SLIGHT; POIKILOCYTOSIS SLIGHT; POLYCHROMASIA SLIGHT
[2017-01-20 20:38] LABS: TARGET CELLS SLIGHT
--- NOTE | 2017-01-20 20:40 | ER Document Report ---
ED General - General Chief Complaint: Congestion Stated Complaint: FEVER Time Seen by Provider: 01/20/17 18:50 Mode of Arrival: Ambulatory Information source: Patient Notes: 31-year-old female history of connective tissue disorder on methotrexate and with ritamide presents with complaints of fever. Patient was seen by myself 2 days ago at that time she had a cough which she states is improved, today she started having fevers. Patient had blood work drawn by her primary care physician yesterday and noted that her white count was extremely low. They stopped her methotrexate and other medications at that time. Patient states she does not have any urinary symptoms, denies any significant cough at this time, patient saw her ENT specialist today and noted to have no ENT symptoms, the patient is noted to complain of a sore throat TRAVEL OUTSIDE OF THE [place] IN LAST 30 DAYS: No - HPI Onset: Last week - Approximately 2 week duration of URI-like symptoms Onset/Duration: Persistent Quality of pain: Achy Severity: Mild Pain Level: 1 Associated symptoms: Fever Exacerbated by: Denies Relieved by: Denies Similar symptoms previously: No Recently seen / treated by doctor: No - Related Data Allergies/Adverse Reactions: clindamycin [Clindamycin] Allergy (Severe, Verified 01/20/17 18:41) rash Coconut * [Coconut] Allergy (Severe, Verified 01/20/17 18:41) throat swells Penicillins Allergy (Severe, Verified 01/20/17 18:41) rash Sulfa (Sulfonamide Antibiotics) Allergy (Severe, Verified 01/20/17 18:41) rash latex [Latex] Allergy (Unknown, Verified 01/20/17 18:41) rash,hands swell tramadol Allergy (Verified 01/20/17 18:41) BLACKBERRIES Allergy (Mild, Uncoded 01/20/17 18:41) MILD RASH ALL OVER Past Medical History - Social History Smoking Status: Never Smoker Cigarette use (# per day): No Chew tobacco use (# tins/day): No Smoking Education Provided: No Drug Abuse: None Family History: Reviewed & Not Pertinent Patient has suicidal ideation: No Patient has homicidal ideation: No - Past Medical History Cardiac Medical History: Reports: Hx Hypertension - MEDICATED Denies: Hx Congestive Heart Failure, Hx Coronary Artery Disease, Hx Heart Attack Pulmonary Medical History: Denies: Hx Asthma, Hx Bronchitis, Hx COPD, Hx Pneumonia, Hx Tuberculosis Neurological Medical History: Denies: Hx Cerebrovascular Accident, Hx Seizures Endocrine Medical History: Reports: Hx Hypothyroidism Renal/ Medical History: Reports: Hx Kidney Stones. Denies: Hx End Stage Renal Disease, Hx Peritoneal Dialysis GI Medical History: Denies: Hx Cirrhosis, Hx Gastroesophageal Reflux Disease, Hx Hepatitis, Hx Hiatal Hernia, Hx Ulcer Musculoskeltal Medical History: Reports Hx Arthritis - RA, Reports Hx Fibromyalgia, Denies Hx Multiple Sclerosis Psychiatric Medical History: Reports: Hx Anxiety, Hx Depression Denies: Hx Bipolar Disorder, Hx Schizophrenia Infectious Medical History: Denies: Hx Hepatitis Past Surgical History: Reports: Hx Section - X3, Hx Cholecystectomy, Hx Orthopedic Surgery - L knee, Hx Tonsillectomy, Hx Tubal Ligation. Denies: Hx Hysterectomy, Hx Mastectomy, Hx Open Heart Surgery, Hx Pacemaker - Immunizations Immunizations up to date: Yes Hx Diphtheria, Pertussis, Tetanus Vaccination: Yes Review of Systems - Review of Systems Notes: REVIEW OF SYSTEMS: CONSTITUTIONAL : Admits to recent illness EENT: Admits to sore throat CARDIOVASCULAR: Denies chest pain. Denies palpitations or racing or irregular heart beat. Denies ankle edema. RESPIRATORY: Denies cough, cold, or chest congestion. Denies shortness of breath, difficulty breathing, or wheezing. GASTROINTESTINAL: Denies abdominal pain or distention. Denies nausea, vomiting , or diarrhea. Denies blood in vomitus, stools, or per rectum. Denies black, tarry stools. Denies constipation. GENITOURINARY: Denies difficulty urinating, painful urination, burning, frequency, blood in urine, or discharge. FEMALE GENITOURINARY: Denies vaginal bleeding, heavy or abnormal periods, irregular periods. Denies vaginal discharge or odor. MUSCULOSKELETAL: Denies back or neck pain or stiffness. Denies joint pain or swelling. SKIN: Denies rash, lesions or sores. HEMATOLOGIC : Denies easy bruising or bleeding. LYMPHATIC: Denies swollen, enlarged glands. NEUROLOGICAL: Denies confusion or altered mental status. Denies passing out or loss of consciousness. Denies dizziness or lightheadedness. Denies headache. Denies weakness or paralysis or loss of use of either side. Denies problems with gait or speech. Denies sensory loss, numbness, or tingling. Denies seizures. PSYCHIATRIC: Denies anxiety or stress. Denies depression, suicidal ideation, or homicidal ideation. ALL OTHER SYSTEMS REVIEWED AND NEGATIVE. PHYSICAL EXAMINATION: GENERAL: Febrile mildly ill-appearing HEAD: Atraumatic, normocephalic. EYES: Pupils equal round and reactive to light, extraocular movements intact, conjunctiva are normal. ENT: Nares patent, oropharynx clear without exudates. Moist mucous membranes. NECK: Normal range of motion, supple without lymphadenopathy LUNGS: Breath sounds clear to auscultation bilaterally and equal. No wheezes rales or rhonchi. HEART: Regular rate and rhythm without murmurs ABDOMEN: Soft, nontender, nondistended abdomen. No guarding, no rebound. No masses appreciated. Female : deferred Musculoskeletal: Normal range of motion, no pitting or edema. No cyanosis. NEUROLOGICAL: Cranial nerves grossly intact. Normal speech, normal gait. Normal sensory, motor exams PSYCH: Normal mood, normal affect. SKIN: Warm, Dry, normal turgor, no rashes or lesions noted. Dictation was performed using [employer] voice recognition software Physical Exam - Vital signs Vitals: Temp Pulse Resp BP Pulse Ox 100.2 F 117 H 18 145/90 H 99 01/20/17 18:41 01/20/17 18:41 01/20/17 18:41 01/20/17 18:41 01/20/17 18:41 Course - Re-evaluation Re-evalutation: 01/20/17 23:41 Patient is noted to be leukopenic, I believe this may be secondary to methotrexate she was taking, however given that she is having fever and I have no specific source of this I have given her antibiotics IV fluids and will observe her in the hospital - Vital Signs Vital signs: Temp Pulse Resp BP Pulse Ox 100.2 F 117 H 18 145/90 H 99 01/20/17 18:41 01/20/17 18:41 01/20/17 18:41 01/20/17 18:41 01/20/17 18:41 - Laboratory Result Diagrams: 01/20/17 19:25 01/20/17 19:25 Laboratory results interpreted by me: 01/20/17 01/20/17 19:25 19:25 WBC 1.4 L* Seg Neuts % (Manual) 0 L Lymphocytes % (Manual) 60 H Monocytes % (Manual) 24 H Abs Neuts (Manual) 0.0 L Chloride 95 L Est GFR (Non-Af Amer) 59 L Alkaline Phosphatase 131 H C-Reactive Protein 73.6 H - Diagnostic Test Radiology reviewed: Image reviewed Discharge - Discharge Clinical Impression: URI (upper respiratory infection) Qualifiers: URI type: unspecified URI Qualified Code(s): J06.9 - Acute upper respiratory infection, unspecified Fever Qualifiers: Fever type: unspecified Qualified Code(s): R50.9 - Fever, unspecified Leukopenia Qualifiers: Leukopenia type: neutropenia Neutropenia type: unspecified Qualified Code(s): D70.9 - Neutropenia, unspecified Condition: Stable Disposition: ADMITTED OBSERVATION Admitting Provider: Hospitalist Unit Admitted: Telemetry
[2017-01-20 20:44] LABS: WHITE BLOOD COUNT 1.4 10^3/uL (4.0-10.5)
[2017-01-20] MEDS: NORMAL SALINE 1000 ML 1,000 ML IV PRN ×2 (20:52→20:53)
[2017-01-20 20:56] LABS: ADD HIVPANEL? NO; HIV (1 AND 2) ANTIBODY NEGATIVE (NEGATIVE)
[2017-01-20 21:09] LABS: APPEARANCE,URINE SLIGHTLY-CLOUDY; BILIRUBIN,URINE NEGATIVE (NEGATIVE); GLUCOSE, URINE NEGATIVE (NEGATIVE); KETONES,URINE NEGATIVE (NEGATIVE); LEUKOCYTE ESTERASE,URINE NEGATIVE (NEGATIVE); NITRITE,URINE NEGATIVE (NEGATIVE); PROTEIN,URINE NEGATIVE (NEGATIVE); UROBILINOGEN,URINE NEGATIVE mg/dL (<2.0)
[2017-01-20] MEDS ORDERED: VANCOMYCIN HCL INJ 1000 MG VIAL IV ONE (21:10)
[2017-01-20] MEDS ORDERED: CEFEPIME 1 GM/D5W RTU 1 GM/50 ML RTUPB IV ONE (21:10)
[2017-01-20] MEDS ORDERED: GUAIFENESIN SYRP 200 MG/10 ML UDC PO PRN (21:13)
[2017-01-20] MEDS: HEPARIN SOD (PORCINE) 5,000 UNIT/ML 1 ML SYRINGE SUBCUT SCH (22:40)
[2017-01-20] MEDS: FLUTICASONE NASAL SPRAY 50 MCG/SPRY 120 SPRAY/16 GM NASL SCH (22:41)
[2017-01-20] MEDS: GUAIFENESIN 600 MG TABLET.SA PO SCH (22:43)
[2017-01-20] MEDS: BUSPIRONE HCL 10 MG TABLET PO SCH (22:46)
[2017-01-21] MEDS: ACETAMINOPHEN 325 MG TABLET PO PRN ×2 (00:26→04:45)
[2017-01-21] MEDS: NORMAL SALINE 1000 ML 1,000 ML IV SCH ×2 (01:33→06:48)
[2017-01-21] MEDS: IPRATROPIUM/ALBUTEROL 0.5-2.5 MG/3 ML AMPUL NEB SCH ×2 (02:04→08:04)
--- NOTE | 2017-01-21 05:58 | PDOC H&P ---
History of Present Illness Admission Date/PCP: 01/20/17 21:24 Patient complains of: Fever History of Present Illness: MARGARITO VIRGEN is a 31 year old female with a past medical history of chronic sinusitis, osteoporosis, avascular necrosis, mixed connective tissue disease, rheumatoid arthritis on rituximab and methotrexate. She had been her usual state of health until approximatel a week ago noting upper respiratory complaints of rhinorrhea and cough prompting to seek evaluation emergency room 2 days ago where she is found to have an unremarkable presentation. She was diagnosed with acute bronchitis and follow-up with ENT. Outpatient blood work revealed leukopenia with a white blood cell count of 1.2, ENT physical exam was unremarkable. She later developed fever prompting reevaluation emergency room with nonproductive cough and white blood cell count of 1.4. She started on empiric antibiotics and referred to the hospitalist for admission. Patient admits contact with her children who both complaint of upper respiratory symptoms, she denies rash, chest pain, nausea or vomiting. She is up-to-date with vaccinations. Past Medical History Cardiac Medical History: Reports: Hypertension - MEDICATED Denies: Congestive Heart Failure, Coronary Artery Disease, Myocardial Infarction Pulmonary Medical History: Denies: Asthma, Bronchitis, Chronic Obstructive Pulmonary Disease (COPD), Pneumonia, Tuberculosis Neurological Medical History: Denies: Seizures Endocrine Medical History: Reports: Hypothyroidism, Obesity Renal/ Medical History: Denies: End Stage Renal Disease GI Medical History: Denies: Cirrhosis, Gastroesophageal Reflux Disease, Hepatitis, Hiatal Hernia Musculoskeltal Medical History: Reports: Arthritis - RA, Fibromyalgia Psychiatric Medical History: Reports: Depression Denies: Bipolar Disorder Hematology: Reports: Anemia - MEDICATED Denies: Sickle Cell Disease, Bleeding Tendencies Past Surgical History Past Surgical History: Reports: Section - X3, Cholecystectomy, Orthopedic Surgery - L knee, Tonsillectomy, Tubal Ligation Denies: Amputation, Hysterectomy, Mastectomy, Pacemaker Social History Information Source: Patient, [facility] Records Lives with: Family Smoking Status: Never Smoker Frequency of Alcohol Use: Occasional Hx Recreational Drug Use: No Hx Prescription Drug Abuse: No - Advance Directive Resuscitation Status: Full Code Family History Family History: Other - Leukemia and esophageal cancer in grandparents Parental Family History Reviewed: Yes Children Family History Reviewed: Yes Sibling(s) Family History Reviewed.: Yes Medication/Allergy Allergies/Adverse Reactions: clindamycin [Clindamycin] Allergy (Severe, Verified 01/20/17 18:41) rash Coconut * [Coconut] Allergy (Severe, Verified 01/20/17 18:41) throat swells Penicillins Allergy (Severe, Verified 01/20/17 18:41) rash Sulfa (Sulfonamide Antibiotics) Allergy (Severe, Verified 01/20/17 18:41) rash latex [Latex] Allergy (Unknown, Verified 01/20/17 18:41) rash,hands swell tramadol Allergy (Verified 01/20/17 18:41) BLACKBERRIES Allergy (Mild, Uncoded 01/20/17 18:41) MILD RASH ALL OVER Review of Systems Constitutional: PRESENT: as per HPI, chills, fatigue, fever(s) Eyes: ABSENT: visual disturbances Ears: ABSENT: hearing changes Nose, Mouth, and Throat: PRESENT: as per HPI Cardiovascular: ABSENT: chest pain, dyspnea on exertion, edema, orthropnea, palpitations Respiratory: PRESENT: cough. ABSENT: hemoptysis, sputum Gastrointestinal: ABSENT: abdominal pain, constipation, diarrhea, hematemesis, hematochezia, nausea, vomiting Genitourinary: ABSENT: dysuria, hematuria Musculoskeletal: ABSENT: joint swelling Integumentary: ABSENT: rash, wounds Neurological: ABSENT: abnormal gait, abnormal speech, confusion, dizziness, focal weakness, syncope Psychiatric: ABSENT: anxiety, depression, homidical ideation, suicidal ideation Endocrine: ABSENT: cold intolerance, heat intolerance, polydipsia, polyuria Hematologic/Lymphatic: ABSENT: easy bleeding, easy bruising Physical Exam Vital Signs: Temp Pulse Resp BP Pulse Ox 97.6 F 82 15 130/69 H 100 01/21/17 03:38 01/21/17 03:38 01/21/17 03:38 01/21/17 03:38 01/21/17 03:38 Intake & Output 01/19/17 01/20/17 01/21/17 11:59 11:59 11:59 Intake Total 1250 Balance 1250 Weight 86.8 kg General appearance: PRESENT: no acute distress, well-developed, well-nourished Head exam: PRESENT: atraumatic, normocephalic Eye exam: PRESENT: conjunctiva pink, EOMI, PERRLA. ABSENT: scleral icterus Ear exam: PRESENT: normal external ear exam Mouth exam: PRESENT: moist, tongue midline Neck exam: ABSENT: carotid bruit, JVD, lymphadenopathy, thyromegaly Respiratory exam: PRESENT: clear to auscultation alex. ABSENT: rales, rhonchi, wheezes Cardiovascular exam: PRESENT: RRR. ABSENT: diastolic murmur, rubs, systolic murmur Pulses: PRESENT: normal dorsalis pedis pul Vascular exam: PRESENT: normal capillary refill GI/Abdominal exam: PRESENT: normal bowel sounds, soft. ABSENT: distended, guarding, mass, organolmegaly, rebound, tenderness Rectal exam: PRESENT: deferred Extremities exam: PRESENT: full ROM. ABSENT: calf tenderness, clubbing, pedal edema Neurological exam: PRESENT: alert, awake, oriented to person, oriented to place , oriented to time, oriented to situation, CN II-XII grossly intact. ABSENT: motor sensory deficit Psychiatric exam: PRESENT: appropriate affect, normal mood. ABSENT: homicidal ideation, suicidal ideation Skin exam: PRESENT: dry, intact, warm. ABSENT: cyanosis, rash Assessment & Plan - Diagnosis (1) Acquired immunocompromised state Is this a current diagnosis for this admission?: Yes Plan: Secondary to chronic methotrexate and rituximab. Neutropenic precautions, received vancomycin and cefepime in the emergency department. (2) Fever Qualifiers: Fever type: unspecified Qualified Code(s): R50.9 - Fever, unspecified Is this a current diagnosis for this admission?: Yes Plan: Concern for immunocompromise state placed on empiric antibiotics, symptomatic management (3) Leukopenia Qualifiers: Leukopenia type: neutropenia Neutropenia type: unspecified Qualified Code (s): D70.9 - Neutropenia, unspecified Is this a current diagnosis for this admission?: Yes Plan: History suggests parvo virus versus rituximab and methotrexate. Will obtain parvo serology, repeat CBC and hematology consult. (4) URI (upper respiratory infection) Qualifiers: URI type: unspecified URI Qualified Code(s): J06.9 - Acute upper respiratory infection, unspecified Is this a current diagnosis for this admission?: Yes Plan: History suggests viral URI such as parvo, supportive and symptomatic management. Follow-up parvo serology. - Time Time Spent: 30 to 50 Minutes - Inpatient Certification Medical Necessity: Need Close Monitoring Due to Risk of Patient Decompensation
[2017-01-21] MEDS: HEPARIN SOD (PORCINE) 5,000 UNIT/ML 1 ML SYRINGE SUBCUT SCH ×3 (06:07→21:44)
[2017-01-21] MEDS: BUSPIRONE HCL 10 MG TABLET PO SCH ×3 (06:08→21:46)
[2017-01-21] MEDS ORDERED: ONDANSETRON HCL INJ/PF 4 MG/2 ML SDV IV ONE (06:45)
[2017-01-21 06:48] LABS: ANION GAP 12 (5-19); BLOOD UREA NITROGEN 10 mg/dL (7-20); CARBON DIOXIDE 21 mmol/L (22-30); CHLORIDE 108 mmol/L (98-107); CREATININE RESULT 0.95 mg/dL (0.52-1.25); GLUCOSE 117 mg/dL (75-110); POTASSIUM 3.3 mmol/L (3.6-5.0); SODIUM 141.4 mmol/L (137-145)
[2017-01-21 06:56] LABS: HEMATOCRIT 34.1 % (36.0-47.0); HGB HCT DIFFERENCE 1.9; MEAN CORPUSCULAR HEMOGLOBIN 31.9 pg (27.0-33.4); MEAN CORPUSCULAR HGB CONC 35.2 g/dL (32.0-36.0); MEAN CORPUSCULAR VOLUME 91 fl (80-97); RED BLOOD COUNT 3.75 10^6/uL (3.72-5.28); RED CELL DISTRIBUTION WIDTH 12.8 % (11.5-14.0)
[2017-01-21 07:53] LABS: WHITE BLOOD COUNT 1.5 10^3/uL (4.0-10.5)
[2017-01-21 08:00] LABS: BASOPHILS % (MANUAL) 0 % (0-2); EOSINOPHILS % (MANUAL) 4 % (0-6); LYMPHOCYTES % (MANUAL) 58 % (13-45); TOTAL CELLS COUNTED 50
[2017-01-21 08:01] LABS: RBC MORPHOLOGY COMMENT NORMO-CYTIC/CHROMIC
[2017-01-21] MEDS ORDERED: IPRATROPIUM/ALBUTEROL 0.5-2.5 MG/3 ML AMPUL NEB PRN (08:15)
--- NOTE | 2017-01-21 08:16 | PDOC CONSULTATION ---
Consultation Consult Date: 01/21/17 Attending physician:: RICH SAMAYOA Consult reason:: Neutropenia History of Present Illness Admission Date/PCP: 01/20/17 21:24 Patient complains of: Fever, cough History of Present Illness: 31-year-old female with known history of mixed connective tissue disorders/RA, who has been on methotrexate and Rituxan, last Rituxan dose was several weeks ago, presents with neutropenic fever. She had several days of cough and fever, ultimately she went to her PCP who did a total white count and found her ANC to be under 200, upon presentation here her total white count is 1.4 ANC of 0. She is not having any productive cough, she does not have any sores noted on the body, UA seemed clear, so there is no source of infection thus far. 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 Past Medical History Cardiac Medical History: Reports: Hypertension - MEDICATED Denies: Congestive Heart Failure, Coronary Artery Disease, Myocardial Infarction Pulmonary Medical History: Denies: Asthma, Bronchitis, Chronic Obstructive Pulmonary Disease (COPD), Pneumonia, Tuberculosis Neurological Medical History: Denies: Seizures Endocrine Medical History: Reports: Hypothyroidism, Obesity Renal/ Medical History: Denies: End Stage Renal Disease GI Medical History: Denies: Cirrhosis, Gastroesophageal Reflux Disease, Hepatitis, Hiatal Hernia Musculoskeltal Medical History: Reports: Arthritis - RA, Fibromyalgia Psychiatric Medical History: Reports: Depression Denies: Bipolar Disorder Hematology: Reports: Anemia - MEDICATED Denies: Sickle Cell Disease, Bleeding Tendencies Past Surgical History Past Surgical History: Reports: Section - X3, Cholecystectomy, Orthopedic Surgery - L knee, Tonsillectomy, Tubal Ligation Denies: Amputation, Hysterectomy, Mastectomy, Pacemaker Social History Information Source: Patient Lives with: Family Smoking Status: Never Smoker Frequency of Alcohol Use: Occasional Hx Recreational Drug Use: No Hx Prescription Drug Abuse: No - Advance Directive Resuscitation Status: Full Code Family History Family History: Other - Leukemia and esophageal cancer in grandparents Parental Family History Reviewed: Yes Children Family History Reviewed: Yes Sibling(s) Family History Reviewed.: Yes Medication/Allergy Allergies/Adverse Reactions: clindamycin [Clindamycin] Allergy (Severe, Verified 01/20/17 18:41) rash Coconut * [Coconut] Allergy (Severe, Verified 01/20/17 18:41) throat swells Penicillins Allergy (Severe, Verified 01/20/17 18:41) rash Sulfa (Sulfonamide Antibiotics) Allergy (Severe, Verified 01/20/17 18:41) rash latex [Latex] Allergy (Unknown, Verified 01/20/17 18:41) rash,hands swell tramadol Allergy (Verified 01/20/17 18:41) BLACKBERRIES Allergy (Mild, Uncoded 01/20/17 18:41) MILD RASH ALL OVER Review of Systems Constitutional: ABSENT: chills, fever(s), headache(s), weight gain, weight loss Eyes: ABSENT: visual disturbances Ears: ABSENT: hearing changes Cardiovascular: ABSENT: chest pain, dyspnea on exertion, edema, orthropnea, palpitations Respiratory: ABSENT: cough, hemoptysis Gastrointestinal: ABSENT: abdominal pain, constipation, diarrhea, hematemesis, hematochezia, nausea, vomiting Genitourinary: ABSENT: dysuria, hematuria Musculoskeletal: ABSENT: joint swelling Integumentary: ABSENT: rash, wounds Neurological: ABSENT: abnormal gait, abnormal speech, confusion, dizziness, focal weakness, syncope Psychiatric: ABSENT: anxiety, depression, homidical ideation, suicidal ideation Endocrine: ABSENT: cold intolerance, heat intolerance, polydipsia, polyuria Hematologic/Lymphatic: ABSENT: easy bleeding, easy bruising Physical Exam Vital Signs: Temp Pulse Resp BP Pulse Ox 97.6 F 92 15 130/69 H 100 01/21/17 03:38 01/21/17 07:00 01/21/17 03:38 01/21/17 03:38 01/21/17 03:38 Intake & Output 01/20/17 01/21/17 01/22/17 06:59 06:59 06:59 Intake Total 1730 Output Total 600 Balance 1130 Weight 86.8 kg General appearance: PRESENT: no acute distress, well-developed, well-nourished Head exam: PRESENT: atraumatic, normocephalic Eye exam: PRESENT: conjunctiva pink, EOMI, PERRLA. ABSENT: scleral icterus Ear exam: PRESENT: normal external ear exam Mouth exam: PRESENT: moist, tongue midline Neck exam: ABSENT: carotid bruit, JVD, lymphadenopathy, thyromegaly Respiratory exam: PRESENT: clear to auscultation alex. ABSENT: rales, rhonchi, wheezes Cardiovascular exam: PRESENT: RRR. ABSENT: diastolic murmur, rubs, systolic murmur Pulses: PRESENT: normal dorsalis pedis pul Vascular exam: PRESENT: normal capillary refill GI/Abdominal exam: PRESENT: normal bowel sounds, soft. ABSENT: distended, guarding, mass, organolmegaly, rebound, tenderness Rectal exam: PRESENT: deferred Extremities exam: PRESENT: full ROM. ABSENT: calf tenderness, clubbing, pedal edema Neurological exam: PRESENT: alert, awake, oriented to person, oriented to place , oriented to time, oriented to situation, CN II-XII grossly intact. ABSENT: motor sensory deficit Psychiatric exam: PRESENT: appropriate affect, normal mood. ABSENT: homicidal ideation, suicidal ideation Skin exam: PRESENT: dry, intact, warm. ABSENT: cyanosis, rash Results Laboratory Results: 01/21/17 05:26 01/21/17 05:26 01/21/17 01/21/17 05:26 05:26 WBC 1.5 L* RBC 3.75 Hgb 12.0 D Hct 34.1 L MCV 91 MCH 31.9 MCHC 35.2 RDW 12.8 Plt Count 235 Seg Neutrophils % Not Reportable Lymphocytes % Not Reportable Monocytes % Not Reportable Eosinophils % Not Reportable Basophils % Not Reportable Absolute Neutrophils Not Reportable Absolute Lymphocytes Not Reportable Absolute Monocytes Not Reportable Absolute Eosinophils Not Reportable Absolute Basophils Not Reportable Sodium 141.4 Potassium 3.3 L Chloride 108 H Carbon Dioxide 21 L Anion Gap 12 BUN 10 Creatinine 0.95 Est GFR ( Amer) > 60 Est GFR (Non-Af Amer) > 60 Glucose 117 H Calcium 8.0 L Assessment & Plan - Diagnosis (1) Drug induced neutropenia Is this a current diagnosis for this admission?: Yes Plan: Most likely drug-induced neutropenia, possibly related to the methotrexate, less likely to be related to Rituxan, most of the time Rituxan does not cause neutropenia. It does not appear that there is other drugs or medications that she has newly started on that would cause this. Regardless, it is most likely drug-induced. We will initiate Neupogen 480 mcg daily until ANC is greater than 1000. Continue with broad-spectrum antibiotics with both cefepime and vancomycin until cultures are negative for 72 hours, then vancomycin can be DC' d and cefepime will be continued until ANC is greater than 1000. Thereafter she could probably be discharged home on oral antibiotics. But that may take several days to happen, probably will not happen until Tuesday at the earliest. - Time Time Spent: 50 to 70 Minutes Critical Time spent with patient: 25-34 minutes - Inpatient Certification Based on my medical assessment, after consideration of the patient's comorbidities, presenting symptoms, or acuity I expect that the services needed warrant INPATIENT care.: Yes I certify that my determination is in accordance with my understanding of Medicare's requirements for reasonable and necessary INPATIENT services [42 CFR 412.3e].: Yes Medical Necessity: Need for IV Antibiotics
[2017-01-21] MEDS ORDERED: POTASSIUM CHLORIDE 10 MEQ TABLET.SA PO ONE (09:00)
[2017-01-21] MEDS: FLUTICASONE NASAL SPRAY 50 MCG/SPRY 120 SPRAY/16 GM NASL SCH ×2 (09:27→21:46)
[2017-01-21] MEDS: FILGRASTIM INJ 480 MCG/1.6 ML VIAL SUBCUT SCH (09:27)
[2017-01-21] MEDS: CEFEPIME 1 GM/D5W RTU 1 GM/50 ML RTUPB IV SCH ×2 (09:27→21:46)
[2017-01-21] MEDS: GUAIFENESIN 600 MG TABLET.SA PO SCH ×2 (09:27→21:45)
--- NOTE | 2017-01-21 11:22 | Progress Note ---
Provider Note Provider Note: Patient is 31-year-old woman with known history of mixed connective tissue disorders on methotrexate and Rituxan admitted overnight with neutropenic fevers. She was sent from her primary care doctor to be evaluated for low wbc 1.4 on presentation. She has been having some URI symptoms. She was started this admission on vancomycin and cefepime. Vancomycin has been discontinued but will resume. Blood culture pending. Seen and evaluated by oncology and input appreciated. Neupogen given. Continue vancomycin and cefepime and follow blood culture. On neutropenic precaution and follow up labs.
[2017-01-21] MEDS ORDERED: PHARMACY COMMUNICATION ORDER MC NR (11:30)
[2017-01-21] MEDS: VANCOMYCIN HCL 1,000 MG in DEXTROSE 5%-WATER 250 ML IV SCH (12:48)
[2017-01-21] MEDS ORDERED: (PENDING PHARMACY ID) (Zaleplon [Sonata] 10 MG) PO PRN (15:51)
[2017-01-21] MEDS ORDERED: ALPRAZOLAM 0.5 MG TABLET PO PRN (15:51)
[2017-01-21] MEDS: SUCRALFATE 1 GM TABLET PO SCH ×2 (17:27→21:47)
[2017-01-21] MEDS: GABAPENTIN 300 MG CAPSULE PO SCH ×2 (17:29→23:57)
[2017-01-21] MEDS: LUBIPROSTONE 24 MCG CAPSULE PO SCH (21:46)
[2017-01-21] MEDS ORDERED: (PENDING PHARMACY ID) (Quetiapine Fumarate [Seroquel Xr] 200 MG) PO SCH (22:00)
[2017-01-22] MEDS: VANCOMYCIN HCL 1,000 MG in DEXTROSE 5%-WATER 250 ML IV SCH ×3 (02:18→21:36)
[2017-01-22] MEDS: GABAPENTIN 300 MG CAPSULE PO SCH ×3 (05:33→17:35)
[2017-01-22] MEDS: BUSPIRONE HCL 10 MG TABLET PO SCH ×3 (05:33→21:35)
[2017-01-22] MEDS: HEPARIN SOD (PORCINE) 5,000 UNIT/ML 1 ML SYRINGE SUBCUT SCH ×3 (05:33→21:38)
[2017-01-22 06:21] LABS: HEMATOCRIT 37.6 % (36.0-47.0); HEMOGLOBIN 13.3 g/dL (12.0-15.5); HGB HCT DIFFERENCE 2.3; MEAN CORPUSCULAR HGB CONC 35.4 g/dL (32.0-36.0); MEAN CORPUSCULAR VOLUME 90 fl (80-97); RED BLOOD COUNT 4.16 10^6/uL (3.72-5.28); WHITE BLOOD COUNT 1.7 10^3/uL (4.0-10.5)
[2017-01-22 06:28] LABS: ANION GAP 11 (5-19); BLOOD UREA NITROGEN 8 mg/dL (7-20); CARBON DIOXIDE 28 mmol/L (22-30); CHLORIDE 104 mmol/L (98-107); CREATININE RESULT 0.97 mg/dL (0.52-1.25); GLUCOSE 92 mg/dL (75-110); POTASSIUM 4.1 mmol/L (3.6-5.0); SODIUM 142.5 mmol/L (137-145)
[2017-01-22 06:48] LABS: BASOPHILS % (MANUAL) 1 % (0-2); EOSINOPHILS % (MANUAL) 4 % (0-6); LYMPHOCYTES % (MANUAL) 33 % (13-45); TOTAL CELLS COUNTED 100
[2017-01-22 06:50] LABS: OVALOCYTES SLIGHT; POIKILOCYTOSIS SLIGHT
[2017-01-22] MEDS: SUCRALFATE 1 GM TABLET PO SCH ×2 (08:02→10:21)
--- NOTE | 2017-01-22 09:22 | PDOC PROGRESS REPORT ---
Subjective Progress Note for:: 01/22/17 Subjective:: No acute events overnight Physical Exam Vital Signs: Temp Pulse Resp BP Pulse Ox 98.1 F 88 17 138/89 H 100 01/22/17 08:13 01/22/17 08:13 01/22/17 08:13 01/22/17 08:13 01/22/17 08:13 Intake & Output 01/21/17 01/22/17 01/23/17 06:59 06:59 06:59 Intake Total 1730 1610 Output Total 600 Balance 1130 1610 Weight 86.8 kg 90.7 kg General appearance: PRESENT: no acute distress, well-developed, well-nourished Head exam: PRESENT: atraumatic, normocephalic Eye exam: PRESENT: conjunctiva pink, EOMI, PERRLA. ABSENT: scleral icterus Ear exam: PRESENT: normal external ear exam Mouth exam: PRESENT: moist, tongue midline Neck exam: ABSENT: carotid bruit, JVD, lymphadenopathy, thyromegaly Respiratory exam: PRESENT: clear to auscultation alex. ABSENT: rales, rhonchi, wheezes Cardiovascular exam: PRESENT: RRR. ABSENT: diastolic murmur, rubs, systolic murmur Pulses: PRESENT: normal dorsalis pedis pul Vascular exam: PRESENT: normal capillary refill GI/Abdominal exam: PRESENT: normal bowel sounds, soft. ABSENT: distended, guarding, mass, organolmegaly, rebound, tenderness Rectal exam: PRESENT: deferred Extremities exam: PRESENT: full ROM. ABSENT: calf tenderness, clubbing, pedal edema Neurological exam: PRESENT: alert, awake, oriented to person, oriented to place , oriented to time, oriented to situation, CN II-XII grossly intact. ABSENT: motor sensory deficit Psychiatric exam: PRESENT: appropriate affect, normal mood. ABSENT: homicidal ideation, suicidal ideation Skin exam: PRESENT: dry, intact, warm. ABSENT: cyanosis, rash Results Laboratory Results: 01/22/17 04:43 01/22/17 04:43 01/22/17 01/22/17 04:43 04:43 WBC 1.7 L RBC 4.16 Hgb 13.3 Hct 37.6 MCV 90 MCH 32.0 MCHC 35.4 RDW 13.0 Plt Count 252 Seg Neutrophils % Not Reportable Lymphocytes % Not Reportable Monocytes % Not Reportable Eosinophils % Not Reportable Basophils % Not Reportable Absolute Neutrophils Not Reportable Absolute Lymphocytes Not Reportable Absolute Monocytes Not Reportable Absolute Eosinophils Not Reportable Absolute Basophils Not Reportable Sodium 142.5 Potassium 4.1 Chloride 104 Carbon Dioxide 28 Anion Gap 11 BUN 8 Creatinine 0.97 Est GFR ( Amer) > 60 Est GFR (Non-Af Amer) > 60 Glucose 92 Calcium 9.0 Assessment & Plan - Diagnosis (1) Drug induced neutropenia Is this a current diagnosis for this admission?: Yes Plan: Cont neupogen until ANC >1000, con't vanc until cultures neg x 72 hrs then d/c vanc, con't cefepime until ANC>1000. As noted prev, presentation likely 2nd to immunosuppressive meds and possible occult infection. - Time Time Spent with patient: 15-24 minutes Critical Time spent with patient: 15-24 minutes - Inpatient Certification Based on my medical assessment, after consideration of the patient's comorbidities, presenting symptoms, or acuity I expect that the services needed warrant INPATIENT care.: Yes I certify that my determination is in accordance with my understanding of Medicare's requirements for reasonable and necessary INPATIENT services [42 CFR 412.3e].: Yes Medical Necessity: Need for IV Antibiotics, Risk of Complication if Not Cared For in Hospital
[2017-01-22] MEDS: LEUCOVORIN CALCIUM 5 MG TABLET PO SCH (09:52)
[2017-01-22] MEDS: CEFEPIME 1 GM/D5W RTU 1 GM/50 ML RTUPB IV SCH ×2 (09:52→20:24)
[2017-01-22] MEDS: GUAIFENESIN 600 MG TABLET.SA PO SCH ×2 (09:53→21:34)
[2017-01-22] MEDS: ESCITALOPRAM OXALATE 10 MG TABLET PO SCH (09:53)
[2017-01-22] MEDS: CYCLOBENZAPRINE HCL 10 MG TABLET PO SCH (09:54)
[2017-01-22] MEDS: LUBIPROSTONE 24 MCG CAPSULE PO SCH ×2 (09:54→21:53)
[2017-01-22] MEDS: LEVOTHYROXINE SODIUM 0.1 MG TABLET PO SCH (09:54)
[2017-01-22] MEDS: LEVOTHYROXINE SODIUM 0.075 MG TABLET PO SCH (09:54)
[2017-01-22] MEDS: MULTIVITAMIN TABLET PO SCH (09:54)
[2017-01-22] MEDS: FILGRASTIM INJ 480 MCG/1.6 ML VIAL SUBCUT SCH (09:55)
[2017-01-22] MEDS: FLUTICASONE NASAL SPRAY 50 MCG/SPRY 120 SPRAY/16 GM NASL SCH ×2 (09:55→21:36)
[2017-01-22] MEDS ORDERED: NORETHINDRONE E ESTRADIOL IRON PO SCH (10:00)
[2017-01-22] MEDS ORDERED: TAMSULOSIN HCL 0.4 MG CAP.SR.24H PO SCH (10:00)
[2017-01-22] MEDS ORDERED: (PENDING PHARMACY ID) (Escitalopram Oxalate [Lexapro] 40 MG) PO SCH (10:00)
[2017-01-22] MEDS ORDERED: (PENDING PHARMACY ID) (Levothyroxine Sodium [Synthroid] 175 MCG) PO SCH (10:00)
--- NOTE | 2017-01-22 12:25 | PDOC PROGRESS REPORT ---
Subjective Progress Note for:: 01/22/17 Subjective:: Patient is 31-year-old woman with known history of mixed connective tissue disorders on methotrexate and Rituxan admitted on 01/21/17 with neutropenic fevers. She was sent from her primary care doctor to be evaluated for low wbc 1.4 on presentation. She has been having some URI symptoms. She was started this admission on vancomycin and cefepime. Blood culture negative to date. Seen and evaluated by oncology and input appreciated. Started on Neupogen. She reports feeling much better this morning and not as weak. She is looking forward for the visit of her family. Physical Exam Vital Signs: Temp Pulse Resp BP Pulse Ox 98.1 F 88 17 138/89 H 100 01/22/17 08:13 01/22/17 08:13 01/22/17 08:13 01/22/17 08:13 01/22/17 08:13 Intake & Output 01/21/17 01/22/17 01/23/17 06:59 06:59 06:59 Intake Total 1730 1610 Output Total 600 Balance 1130 1610 Weight 86.8 kg 90.7 kg General appearance: PRESENT: no acute distress, obese Head exam: PRESENT: atraumatic, normocephalic Eye exam: PRESENT: EOMI Mouth exam: PRESENT: moist, neck supple Neck exam: PRESENT: full ROM. ABSENT: JVD Respiratory exam: PRESENT: clear to auscultation alex, symmetrical, unlabored. ABSENT: accessory muscle use Cardiovascular exam: PRESENT: RRR, +S1, +S2 GI/Abdominal exam: PRESENT: soft. ABSENT: distended, tenderness Rectal exam: PRESENT: deferred Extremities exam: PRESENT: full ROM. ABSENT: pedal edema Musculoskeletal exam: PRESENT: full ROM Neurological exam: PRESENT: alert, oriented to person, oriented to place, oriented to time, oriented to situation Psychiatric exam: PRESENT: appropriate affect, normal mood Skin exam: PRESENT: intact, other Results Laboratory Results: 01/22/17 04:43 01/22/17 04:43 01/22/17 01/22/17 04:43 04:43 WBC 1.7 L RBC 4.16 Hgb 13.3 Hct 37.6 MCV 90 MCH 32.0 MCHC 35.4 RDW 13.0 Plt Count 252 Seg Neutrophils % Not Reportable Lymphocytes % Not Reportable Monocytes % Not Reportable Eosinophils % Not Reportable Basophils % Not Reportable Absolute Neutrophils Not Reportable Absolute Lymphocytes Not Reportable Absolute Monocytes Not Reportable Absolute Eosinophils Not Reportable Absolute Basophils Not Reportable Sodium 142.5 Potassium 4.1 Chloride 104 Carbon Dioxide 28 Anion Gap 11 BUN 8 Creatinine 0.97 Est GFR ( Amer) > 60 Est GFR (Non-Af Amer) > 60 Glucose 92 Calcium 9.0 Assessment & Plan - Diagnosis (1) Neutropenic fever Is this a current diagnosis for this admission?: Yes Plan: Likely drug-induced Appreciate hematology input Continue to monitor fever curve Blood culture negative thus far Continue vancomycin and cefepime Started on Neupogen until ANC is greater than 1000 Parvovirus labd pending (2) Mixed connective tissue disease Is this a current diagnosis for this admission?: Yes Plan: Chronic immunosuppression-methotrexate and rituximab She follows with rheumatology (3) URI (upper respiratory infection) Qualifiers: URI type: unspecified URI Qualified Code(s): J06.9 - Acute upper respiratory infection, unspecified Is this a current diagnosis for this admission?: Yes Plan: Resolving (4) Hypokalemia Is this a current diagnosis for this admission?: Yes Plan: Resolved with supplementation (5) Hypothyroidism Is this a current diagnosis for this admission?: Yes Plan: Continue Synthroid (6) DVT prophylaxis Is this a current diagnosis for this admission?: Yes Plan: Heparin SubQ - Time Time Spent with patient: 15-24 minutes Within: within 48 hours
[2017-01-22] MEDS ORDERED: LORAZEPAM 1 MG TABLET PO ONE (17:30)
[2017-01-22] MEDS ORDERED: LIDOCAINE 1% INJ-PF (10 MG/ML) 30 ML SDV ONE (17:53)
--- NOTE | 2017-01-22 18:31 | RADIOLOGY REPORT (SQ) ---
EXAM DESCRIPTION: CHEST SINGLE VIEW COMPLETED DATE/TIME: 01/22/2017 6:21 pm REASON FOR STUDY: central line placement COMPARISON: 01/18/2017 EXAM PARAMETERS: NUMBER OF VIEWS: One view. TECHNIQUE: Single frontal radiographic view of the chest acquired. RADIATION DOSE: NA LIMITATIONS: None. FINDINGS: LUNGS AND PLEURA: No opacities, masses or pneumothorax. No pleural effusion. MEDIASTINUM AND HILAR STRUCTURES: No masses. Contour normal. HEART AND VASCULAR STRUCTURES: Heart normal in size. Normal vasculature. BONES: No acute findings. HARDWARE: A right cervical vascular access catheter of the has been placed; the tip terminates in the region of the right atrium. OTHER: No other significant finding. IMPRESSION: 1. No evidence of acute cardiopulmonary abnormality. 2. Interval placement of a right central vascular access catheter which terminates in the region of the right atrium. TECHNICAL DOCUMENTATION: JOB ID: [id number] [employer]- All Rights Reserved
[2017-01-22] MEDS: ONDANSETRON HCL INJ/PF 4 MG/2 ML SDV IV PRN (18:34)
--- NOTE | 2017-01-22 19:38 | OPERATIVE REPORT E ---
Operative Report NAME: MARGARITO VIRGEN : 1985 AGE: 31Y DATE OF SURGERY: 01/22/2017 ROOM: 534 PREOPERATIVE DIAGNOSIS: Poor veins for IV access. POSTOPERATIVE DIAGNOSIS: Poor veins for IV access. OPERATION: Placement of right internal jugular vein triple-lumen catheter. SURGEON: SURESH CALL M.D. ANESTHESIA: Local. INDICATIONS: This is a 31-year-old female with autoimmune disease and noted to have no peripheral IV lines as previously attempted by several nurses to put a line in successfully. PROCEDURE: The patient was placed in slight Trendelenburg position and the right neck exposed. Subsequently prepped and draped in the usual sterile fashion. With the use of the ultrasound, the right internal jugular vein was identified, and Xylocaine infiltrated through the path of the internal jugular vein underneath the skin. A larger, longer needle was then passed over the anesthetized area, down into the internal jugular vein and the vein subsequently punctured. A guidewire passed through the needle into the direction of the superior vena cava. The insertion site was subsequently dilated. Next, a triple-lumen catheter was inserted through the guidewire up to the distance of 15 cm towards the area of the superior vena cava. The guidewire was subsequently pulled out, and all the 3 ports aspirated blood easily and allowed infusion of saline easily. Next, the catheter was anchored to the skin with 3-0 silk. A *------* placed at the insertion site and a transparent dressing placed over the catheter. A chest x-ray will be obtained for placement of catheter and to rule out any other pneumothorax. The patient tolerated the procedure well. ADDENDUM: Chest x-ray was done and read later and showed no evidence of any pneumothorax, with the tip of the catheter right at the right atrium. DICTATING PHYSICIAN: SURESH CALL M.D. [id number] PHY#: [id number] ID: [id number] JOB#: [id number] ACCT: [id number] cc:SURESH CALL M.D. >
[2017-01-22] MEDS: OXYCODONE-ACETAMINOPHEN 5-325 MG TABLET PO PRN (20:23)
[2017-01-23] MEDS: OXYCODONE-ACETAMINOPHEN 5-325 MG TABLET PO PRN ×4 (01:49→22:27)
[2017-01-23] MEDS: GABAPENTIN 300 MG CAPSULE PO SCH ×5 (01:50→23:59)
[2017-01-23] MEDS: HEPARIN SOD (PORCINE) 5,000 UNIT/ML 1 ML SYRINGE SUBCUT SCH ×3 (06:00→22:28)
[2017-01-23] MEDS: BUSPIRONE HCL 10 MG TABLET PO SCH ×3 (06:01→22:27)
[2017-01-23 06:47] LABS: HEMATOCRIT 39.6 % (36.0-47.0); HEMOGLOBIN 14.1 g/dL (12.0-15.5); HGB HCT DIFFERENCE 2.7; MEAN CORPUSCULAR HEMOGLOBIN 31.8 pg (27.0-33.4); MEAN CORPUSCULAR HGB CONC 35.5 g/dL (32.0-36.0); MEAN CORPUSCULAR VOLUME 90 fl (80-97); RED BLOOD COUNT 4.42 10^6/uL (3.72-5.28); RED CELL DISTRIBUTION WIDTH 13.1 % (11.5-14.0); WHITE BLOOD COUNT 2.4 10^3/uL (4.0-10.5)
[2017-01-23 07:11] LABS: BASOPHILS % (MANUAL) 2 % (0-2); EOSINOPHILS % (MANUAL) 6 % (0-6); LYMPHOCYTES % (MANUAL) 50 % (13-45); TOTAL CELLS COUNTED 50
[2017-01-23 07:13] LABS: OVALOCYTES 1+
[2017-01-23 07:14] LABS: POIKILOCYTOSIS SLIGHT; SCHISTOCYTES SLIGHT
[2017-01-23] MEDS: CEFEPIME 1 GM/D5W RTU 1 GM/50 ML RTUPB IV SCH ×2 (09:32→21:06)
[2017-01-23] MEDS: FILGRASTIM INJ 480 MCG/1.6 ML VIAL SUBCUT SCH (09:32)
[2017-01-23] MEDS: ESCITALOPRAM OXALATE 10 MG TABLET PO SCH (09:33)
[2017-01-23] MEDS: GUAIFENESIN 600 MG TABLET.SA PO SCH ×2 (09:33→22:27)
[2017-01-23] MEDS: CYCLOBENZAPRINE HCL 10 MG TABLET PO SCH (09:33)
[2017-01-23] MEDS: FLUTICASONE NASAL SPRAY 50 MCG/SPRY 120 SPRAY/16 GM NASL SCH ×2 (09:33→22:27)
[2017-01-23] MEDS: LEVOTHYROXINE SODIUM 0.075 MG TABLET PO SCH (09:33)
[2017-01-23] MEDS: LEUCOVORIN CALCIUM 5 MG TABLET PO SCH (09:33)
[2017-01-23] MEDS: LUBIPROSTONE 24 MCG CAPSULE PO SCH ×2 (09:33→22:28)
[2017-01-23] MEDS: MULTIVITAMIN TABLET PO SCH (09:33)
[2017-01-23] MEDS: LEVOTHYROXINE SODIUM 0.1 MG TABLET PO SCH (09:34)
[2017-01-23] MEDS: VANCOMYCIN HCL 1,000 MG in DEXTROSE 5%-WATER 250 ML IV SCH ×2 (10:29→22:30)
--- NOTE | 2017-01-23 12:42 | PDOC PROGRESS REPORT ---
Subjective Progress Note for:: 01/23/17 Subjective:: Patient is 31-year-old woman with known history of mixed connective tissue disorders on methotrexate and Rituxan admitted on 01/21/17 with neutropenic fevers. She was sent from her primary care doctor to be evaluated for low wbc 1.4 on presentation. She has been having some URI symptoms. She was started this admission on vancomycin and cefepime. Blood culture remain negative to date. Seen and evaluated by oncology and input appreciated. Started on Neupogen and improvement of her white count. She lost her PIV and had central line inserted to continue IV antibiotics. She was seen and examined this am, she continues to report feeling better. Physical Exam Vital Signs: Temp Pulse Resp BP Pulse Ox 97.7 F 95 18 120/84 99 01/23/17 07:39 01/23/17 07:40 01/23/17 07:40 01/23/17 07:39 01/23/17 07:40 Intake & Output 01/22/17 01/23/17 01/24/17 06:59 06:59 06:59 Intake Total 1610 2170 Balance 1610 2170 Weight 90.7 kg 90.1 kg General appearance: PRESENT: no acute distress, well-developed, well-nourished Head exam: PRESENT: atraumatic, normocephalic Eye exam: PRESENT: conjunctiva pink, EOMI, PERRLA. ABSENT: scleral icterus Mouth exam: PRESENT: moist, tongue midline Neck exam: PRESENT: carotid bruit, other - R IJ central line. ABSENT: JVD Respiratory exam: PRESENT: clear to auscultation alex. ABSENT: rales, rhonchi, wheezes Cardiovascular exam: PRESENT: RRR. ABSENT: diastolic murmur, rubs, systolic murmur Pulses: PRESENT: normal dorsalis pedis pul Vascular exam: PRESENT: normal capillary refill GI/Abdominal exam: PRESENT: normal bowel sounds, soft. ABSENT: distended, guarding, mass, organolmegaly, rebound, tenderness Rectal exam: PRESENT: deferred Extremities exam: PRESENT: full ROM. ABSENT: calf tenderness, clubbing, pedal edema Neurological exam: PRESENT: alert, awake, oriented to person, oriented to place , oriented to time, oriented to situation. ABSENT: motor sensory deficit Psychiatric exam: PRESENT: appropriate affect, normal mood. ABSENT: homicidal ideation, suicidal ideation Skin exam: PRESENT: dry, intact, warm. ABSENT: cyanosis, rash Results Laboratory Results: 01/23/17 05:30 01/22/17 04:43 01/23/17 05:30 WBC 2.4 L RBC 4.42 Hgb 14.1 Hct 39.6 MCV 90 MCH 31.8 MCHC 35.5 RDW 13.1 Plt Count 252 Seg Neutrophils % Not Reportable Lymphocytes % Not Reportable Monocytes % Not Reportable Eosinophils % Not Reportable Basophils % Not Reportable Absolute Neutrophils Not Reportable Absolute Lymphocytes Not Reportable Absolute Monocytes Not Reportable Absolute Eosinophils Not Reportable Absolute Basophils Not Reportable Impressions: Chest X-Ray 01/22/17 00:00 IMPRESSION: 1. No evidence of acute cardiopulmonary abnormality. 2. Interval placement of a right central vascular access catheter which terminates in the region of the right atrium. Assessment & Plan - Diagnosis (1) Neutropenic fever Is this a current diagnosis for this admission?: Yes Plan: Likely drug-induced Appreciate hematology input Blood culture remain negative Continue vancomycin and cefepime Started on Neupogen until ANC is greater than 1000 Parvovirus labd pending (2) Mixed connective tissue disease Is this a current diagnosis for this admission?: Yes Plan: Chronic immunosuppression-methotrexate and rituximab She follows with rheumatology (3) URI (upper respiratory infection) Qualifiers: URI type: unspecified URI Qualified Code(s): J06.9 - Acute upper respiratory infection, unspecified Is this a current diagnosis for this admission?: Yes Plan: Resolving (4) Hypothyroidism Is this a current diagnosis for this admission?: Yes Plan: Continue Synthroid (5) Hypertension Qualifiers: Hypertension type: essential hypertension Qualified Code(s): I10 - Essential (primary) hypertension Is this a current diagnosis for this admission?: Yes Plan: Resume home medications (6) DVT prophylaxis Is this a current diagnosis for this admission?: Yes Plan: Heparin SubQ - Time Time Spent with patient: 25-34 minutes Within: within 24 hours
[2017-01-23] MEDS ORDERED: HYDROCHLOROTHIAZIDE 25 MG TABLET PO ONE (13:00)
[2017-01-23] MEDS ORDERED: METHYLDOPA 250 MG TABLET PO ONE (14:00)
[2017-01-23 17:55] LABS: HEMATOCRIT 43.4 % (36.0-47.0); HEMOGLOBIN 15.2 g/dL (12.0-15.5); HGB HCT DIFFERENCE 2.2; MEAN CORPUSCULAR HEMOGLOBIN 31.5 pg (27.0-33.4); MEAN CORPUSCULAR HGB CONC 35.1 g/dL (32.0-36.0); MEAN CORPUSCULAR VOLUME 90 fl (80-97); RED BLOOD COUNT 4.84 10^6/uL (3.72-5.28); RED CELL DISTRIBUTION WIDTH 13.1 % (11.5-14.0); WHITE BLOOD COUNT 2.7 10^3/uL (4.0-10.5)
[2017-01-23 18:15] LABS: BASOPHILS % (MANUAL) 1 % (0-2); EOSINOPHILS % (MANUAL) 13 % (0-6); LYMPHOCYTES % (MANUAL) 36 % (13-45); NUCLEATED RED BLOOD CELLS 2 /100 WBC (0); TOTAL CELLS COUNTED 100
[2017-01-23 18:18] LABS: PLATELET CLUMPS PRESENT; POLYCHROMASIA SLIGHT
[2017-01-24] MEDS ORDERED: BUSPIRONE HCL 10 MG TABLET ONE (05:27)
[2017-01-24] MEDS: ONDANSETRON HCL INJ/PF 4 MG/2 ML SDV IV PRN ×2 (05:53→12:25)
[2017-01-24] MEDS: HEPARIN SOD (PORCINE) 5,000 UNIT/ML 1 ML SYRINGE SUBCUT SCH ×3 (05:53→21:41)
[2017-01-24] MEDS: BUSPIRONE HCL 10 MG TABLET PO SCH ×3 (05:53→21:41)
[2017-01-24] MEDS: GABAPENTIN 300 MG CAPSULE PO SCH ×3 (05:53→17:20)
[2017-01-24 06:45] LABS: HEMATOCRIT 39.5 % (36.0-47.0); HEMOGLOBIN 13.8 g/dL (12.0-15.5); HGB HCT DIFFERENCE 1.9; MEAN CORPUSCULAR HEMOGLOBIN 31.3 pg (27.0-33.4); MEAN CORPUSCULAR VOLUME 90 fl (80-97); RED BLOOD COUNT 4.42 10^6/uL (3.72-5.28); RED CELL DISTRIBUTION WIDTH 13.2 % (11.5-14.0); WHITE BLOOD COUNT 2.8 10^3/uL (4.0-10.5)
[2017-01-24 07:10] LABS: BAND NEUTROPHILS % (MANUAL) 1 % (3-5); BASOPHILS % (MANUAL) 2 % (0-2); EOSINOPHILS % (MANUAL) 4 % (0-6); LYMPHOCYTES % (MANUAL) 51 % (13-45); TOTAL CELLS COUNTED 100
[2017-01-24 07:12] LABS: PLATELET CLUMPS PRESENT; RBC MORPHOLOGY COMMENT NORMO-CYTIC/CHROMIC
--- NOTE | 2017-01-24 07:36 | PDOC PROGRESS REPORT ---
Subjective Progress Note for:: 01/24/17 Subjective:: No acute events overnight, ANC <1000 still, no fevers, pt needed central line placement over weekend. Physical Exam Vital Signs: Temp Pulse Resp BP Pulse Ox 98.7 F 108 H 16 121/69 99 01/24/17 00:53 01/24/17 02:00 01/24/17 00:53 01/24/17 00:53 01/24/17 00:53 Intake & Output 01/23/17 01/24/17 01/25/17 06:59 06:59 06:59 Intake Total 2170 2350 Balance 2170 2350 Weight 90.1 kg 88.5 kg General appearance: PRESENT: no acute distress, well-developed, well-nourished Head exam: PRESENT: atraumatic, normocephalic Eye exam: PRESENT: conjunctiva pink, EOMI, PERRLA. ABSENT: scleral icterus Ear exam: PRESENT: normal external ear exam Mouth exam: PRESENT: moist, tongue midline Neck exam: ABSENT: carotid bruit, JVD, lymphadenopathy, thyromegaly Respiratory exam: PRESENT: clear to auscultation alex. ABSENT: rales, rhonchi, wheezes Cardiovascular exam: PRESENT: RRR. ABSENT: diastolic murmur, rubs, systolic murmur Pulses: PRESENT: normal dorsalis pedis pul Vascular exam: PRESENT: normal capillary refill GI/Abdominal exam: PRESENT: normal bowel sounds, soft. ABSENT: distended, guarding, mass, organolmegaly, rebound, tenderness Rectal exam: PRESENT: deferred Extremities exam: PRESENT: full ROM. ABSENT: calf tenderness, clubbing, pedal edema Neurological exam: PRESENT: alert, awake, oriented to person, oriented to place , oriented to time, oriented to situation, CN II-XII grossly intact. ABSENT: motor sensory deficit Psychiatric exam: PRESENT: appropriate affect, normal mood. ABSENT: homicidal ideation, suicidal ideation Skin exam: PRESENT: dry, intact, warm. ABSENT: cyanosis, rash Results Laboratory Results: 01/24/17 05:45 01/22/17 04:43 01/23/17 01/24/17 17:00 05:45 WBC 2.7 L 2.8 L RBC 4.84 4.42 Hgb 15.2 13.8 Hct 43.4 39.5 MCV 90 90 MCH 31.5 31.3 MCHC 35.1 35.0 RDW 13.1 13.2 Plt Count 325 248 Seg Neutrophils % Not Reportable Not Reportable Lymphocytes % Not Reportable Not Reportable Monocytes % Not Reportable Not Reportable Eosinophils % Not Reportable Not Reportable Basophils % Not Reportable Not Reportable Absolute Neutrophils Not Reportable Not Reportable Absolute Lymphocytes Not Reportable Not Reportable Absolute Monocytes Not Reportable Not Reportable Absolute Eosinophils Not Reportable Not Reportable Absolute Basophils Not Reportable Not Reportable Impressions: Chest X-Ray 01/22/17 00:00 IMPRESSION: 1. No evidence of acute cardiopulmonary abnormality. 2. Interval placement of a right central vascular access catheter which terminates in the region of the right atrium. Assessment & Plan - Diagnosis (1) Drug induced neutropenia Is this a current diagnosis for this admission?: Yes Plan: D'c'd vancomycin today as cx all neg, con't cefepime, con't neupogen today, will take more time for count recovery. - Time Time Spent with patient: 15-24 minutes Critical Time spent with patient: 15-24 minutes - Inpatient Certification Based on my medical assessment, after consideration of the patient's comorbidities, presenting symptoms, or acuity I expect that the services needed warrant INPATIENT care.: Yes I certify that my determination is in accordance with my understanding of Medicare's requirements for reasonable and necessary INPATIENT services [42 CFR 412.3e].: Yes Medical Necessity: Need for IV Antibiotics
[2017-01-24] MEDS: ESCITALOPRAM OXALATE 10 MG TABLET PO SCH (10:26)
[2017-01-24] MEDS: CEFEPIME 1 GM/D5W RTU 1 GM/50 ML RTUPB IV SCH ×2 (10:31→21:41)
[2017-01-24] MEDS: MULTIVITAMIN TABLET PO SCH (10:32)
[2017-01-24] MEDS: GUAIFENESIN 600 MG TABLET.SA PO SCH ×2 (10:32→21:41)
[2017-01-24] MEDS: LEVOTHYROXINE SODIUM 0.075 MG TABLET PO SCH (10:32)
[2017-01-24] MEDS: METHYLDOPA 250 MG TABLET PO SCH (10:32)
[2017-01-24] MEDS: HYDROCHLOROTHIAZIDE 25 MG TABLET PO SCH (10:32)
[2017-01-24] MEDS: LEVOTHYROXINE SODIUM 0.1 MG TABLET PO SCH (10:32)
[2017-01-24] MEDS: FLUTICASONE NASAL SPRAY 50 MCG/SPRY 120 SPRAY/16 GM NASL SCH ×2 (10:32→21:41)
[2017-01-24] MEDS: FILGRASTIM INJ 480 MCG/1.6 ML VIAL SUBCUT SCH (10:32)
[2017-01-24] MEDS: LUBIPROSTONE 24 MCG CAPSULE PO SCH ×2 (10:32→21:41)
[2017-01-24] MEDS: CYCLOBENZAPRINE HCL 10 MG TABLET PO SCH (10:32)
[2017-01-24 10:52] LABS: CREATININE RESULT 1.04 mg/dL (0.52-1.25)
[2017-01-24] MEDS: OXYCODONE-ACETAMINOPHEN 5-325 MG TABLET PO PRN (12:22)
--- NOTE | 2017-01-24 13:22 | PDOC PROGRESS REPORT ---
Subjective Progress Note for:: 01/24/17 Subjective:: Patient is 31-year-old woman with known history of mixed connective tissue disorders on methotrexate and Rituxan admitted on 01/21/17 with neutropenic fevers. She was sent from her primary care doctor to be evaluated for low wbc 1.4 on presentation. She has been having some URI symptoms and resolved since admission. She was started this admission on vancomycin and cefepime. Blood culture remain negative to date. Seen and evaluated by oncology and input appreciated. Started on Neupogen and improvement of her white count. She lost her PIV and had central line inserted to continue IV antibiotics. She was seen and examined this am, she reports some discomfort at the the central line area. Physical Exam Vital Signs: Temp Pulse Resp BP Pulse Ox 98.1 F 87 12 118/77 100 01/24/17 08:08 01/24/17 08:08 01/24/17 08:08 01/24/17 08:08 01/24/17 08:08 Intake & Output 01/23/17 01/24/17 01/25/17 06:59 06:59 06:59 Intake Total 2170 2350 Balance 2170 2350 Weight 90.1 kg 88.5 kg General appearance: PRESENT: no acute distress, well-developed, well-nourished Head exam: PRESENT: atraumatic, normocephalic Eye exam: PRESENT: conjunctiva pink, EOMI, PERRLA. ABSENT: scleral icterus Mouth exam: PRESENT: moist, neck supple, tongue midline, other - R IJ central line without redness around the insertion site Neck exam: ABSENT: JVD, thyromegaly Respiratory exam: PRESENT: clear to auscultation alex. ABSENT: rales, rhonchi, wheezes Cardiovascular exam: PRESENT: RRR. ABSENT: diastolic murmur, rubs, systolic murmur Vascular exam: PRESENT: normal capillary refill GI/Abdominal exam: PRESENT: normal bowel sounds, soft. ABSENT: distended, guarding, mass, organolmegaly, rebound, tenderness Rectal exam: PRESENT: deferred Extremities exam: PRESENT: full ROM. ABSENT: calf tenderness, clubbing, pedal edema Neurological exam: PRESENT: alert, awake, oriented to person, oriented to place , oriented to time, oriented to situation. ABSENT: motor sensory deficit Psychiatric exam: PRESENT: appropriate affect, normal mood. ABSENT: homicidal ideation, suicidal ideation Skin exam: PRESENT: dry, intact, warm. ABSENT: cyanosis, rash Results Laboratory Results: 01/24/17 05:45 01/24/17 09:54 01/23/17 01/24/17 01/24/17 17:00 05:45 09:54 WBC 2.7 L 2.8 L RBC 4.84 4.42 Hgb 15.2 13.8 Hct 43.4 39.5 MCV 90 90 MCH 31.5 31.3 MCHC 35.1 35.0 RDW 13.1 13.2 Plt Count 325 248 Seg Neutrophils % Not Reportable Not Reportable Lymphocytes % Not Reportable Not Reportable Monocytes % Not Reportable Not Reportable Eosinophils % Not Reportable Not Reportable Basophils % Not Reportable Not Reportable Absolute Neutrophils Not Reportable Not Reportable Absolute Lymphocytes Not Reportable Not Reportable Absolute Monocytes Not Reportable Not Reportable Absolute Eosinophils Not Reportable Not Reportable Absolute Basophils Not Reportable Not Reportable Creatinine 1.04 Est GFR ( Amer) > 60 Est GFR (Non-Af Amer) > 60 Impressions: Chest X-Ray 01/22/17 00:00 IMPRESSION: 1. No evidence of acute cardiopulmonary abnormality. 2. Interval placement of a right central vascular access catheter which terminates in the region of the right atrium. Assessment & Plan - Diagnosis (1) Neutropenic fever Is this a current diagnosis for this admission?: Yes Plan: Likely drug-induced Appreciate hematology input Blood culture remain negative Has been on vancomycin and cefepime Discontinue vancomycin and continue cefepime Started on Neupogen until ANC is greater than 1000 Parvovirus labd pending (2) Mixed connective tissue disease Is this a current diagnosis for this admission?: Yes Plan: Chronic immunosuppression-methotrexate and rituximab She follows with rheumatology (3) URI (upper respiratory infection) Qualifiers: URI type: unspecified URI Qualified Code(s): J06.9 - Acute upper respiratory infection, unspecified Is this a current diagnosis for this admission?: Yes Plan: Resolved (4) Hypothyroidism Is this a current diagnosis for this admission?: Yes Plan: Continue Synthroid (5) Hypertension Qualifiers: Hypertension type: essential hypertension Qualified Code(s): I10 - Essential (primary) hypertension Is this a current diagnosis for this admission?: Yes Plan: Continue HCTZ and methyldopa (6) DVT prophylaxis Is this a current diagnosis for this admission?: Yes Plan: Heparin SubQ - Time Anticipated discharge: Home Within: Other - Depend on her ANC
[2017-01-25] MEDS: GABAPENTIN 300 MG CAPSULE PO SCH ×4 (00:36→18:36)
[2017-01-25] MEDS: BUSPIRONE HCL 10 MG TABLET PO SCH ×3 (05:23→21:39)
[2017-01-25] MEDS: HEPARIN SOD (PORCINE) 5,000 UNIT/ML 1 ML SYRINGE SUBCUT SCH ×3 (05:23→21:39)
[2017-01-25 06:20] LABS: HEMATOCRIT 38.9 % (36.0-47.0); HEMOGLOBIN 13.6 g/dL (12.0-15.5); HGB HCT DIFFERENCE 1.9; MEAN CORPUSCULAR HGB CONC 34.9 g/dL (32.0-36.0); MEAN CORPUSCULAR VOLUME 89 fl (80-97); RED BLOOD COUNT 4.38 10^6/uL (3.72-5.28); RED CELL DISTRIBUTION WIDTH 13.3 % (11.5-14.0); WHITE BLOOD COUNT 4.7 10^3/uL (4.0-10.5)
[2017-01-25 07:05] LABS: BAND NEUTROPHILS % (MANUAL) 3 % (3-5); BASOPHILS % (MANUAL) 0 % (0-2); EOSINOPHILS % (MANUAL) 1 % (0-6); LYMPHOCYTES % (MANUAL) 52 % (13-45); TOTAL CELLS COUNTED 100
[2017-01-25 07:07] LABS: NUCLEATED RED BLOOD CELLS 1 /100 WBC (0); POIKILOCYTOSIS SLIGHT; TEAR DROP CELLS SLIGHT
[2017-01-25 07:35] LABS: ANION GAP 16 (5-19); BLOOD UREA NITROGEN 13 mg/dL (7-20); CARBON DIOXIDE 25 mmol/L (22-30); CHLORIDE 103 mmol/L (98-107); CREATININE RESULT 1.02 mg/dL (0.52-1.25); GLUCOSE 142 mg/dL (75-110); POTASSIUM 3.2 mmol/L (3.6-5.0); SODIUM 144.4 mmol/L (137-145)
[2017-01-25] MEDS: CEFEPIME 1 GM/D5W RTU 1 GM/50 ML RTUPB IV SCH ×2 (08:30→21:38)
--- NOTE | 2017-01-25 08:45 | PDOC PROGRESS REPORT ---
Subjective Progress Note for:: 01/25/17 Subjective:: Wt ct still low. Asked pathology to review smear to ensure no blasts. Pt still assymptomatic Physical Exam Vital Signs: Temp Pulse Resp BP Pulse Ox 98.8 F 99 18 116/78 94 01/25/17 07:29 01/25/17 08:20 01/25/17 08:20 01/25/17 07:29 01/25/17 08:20 Intake & Output 01/24/17 01/25/17 01/26/17 06:59 06:59 06:59 Intake Total 2350 1044 Balance 2350 1044 Weight 88.5 kg 89 kg General appearance: PRESENT: no acute distress, well-developed, well-nourished Head exam: PRESENT: atraumatic, normocephalic Eye exam: PRESENT: conjunctiva pink, EOMI, PERRLA. ABSENT: scleral icterus Ear exam: PRESENT: normal external ear exam Mouth exam: PRESENT: moist, tongue midline Neck exam: ABSENT: carotid bruit, JVD, lymphadenopathy, thyromegaly Respiratory exam: PRESENT: clear to auscultation alex. ABSENT: rales, rhonchi, wheezes Cardiovascular exam: PRESENT: RRR. ABSENT: diastolic murmur, rubs, systolic murmur Pulses: PRESENT: normal dorsalis pedis pul Vascular exam: PRESENT: normal capillary refill GI/Abdominal exam: PRESENT: normal bowel sounds, soft. ABSENT: distended, guarding, mass, organolmegaly, rebound, tenderness Rectal exam: PRESENT: deferred Extremities exam: PRESENT: full ROM. ABSENT: calf tenderness, clubbing, pedal edema Neurological exam: PRESENT: alert, awake, oriented to person, oriented to place , oriented to time, oriented to situation, CN II-XII grossly intact. ABSENT: motor sensory deficit Psychiatric exam: PRESENT: appropriate affect, normal mood. ABSENT: homicidal ideation, suicidal ideation Skin exam: PRESENT: dry, intact, warm. ABSENT: cyanosis, rash Results Laboratory Results: 01/25/17 06:00 01/25/17 06:00 01/24/17 01/25/17 01/25/17 09:54 06:00 06:00 WBC 4.7 RBC 4.38 Hgb 13.6 Hct 38.9 MCV 89 MCH 31.0 MCHC 34.9 RDW 13.3 Plt Count 197 Seg Neutrophils % Not Reportable Lymphocytes % Not Reportable Monocytes % Not Reportable Eosinophils % Not Reportable Basophils % Not Reportable Absolute Neutrophils Not Reportable Absolute Lymphocytes Not Reportable Absolute Monocytes Not Reportable Absolute Eosinophils Not Reportable Absolute Basophils Not Reportable Sodium Potassium Chloride Carbon Dioxide Anion Gap BUN Creatinine 1.04 Est GFR ( Amer) > 60 Est GFR (Non-Af Amer) > 60 Glucose Calcium Magnesium 1.6 01/25/17 06:00 WBC RBC Hgb Hct MCV MCH MCHC RDW Plt Count Seg Neutrophils % Lymphocytes % Monocytes % Eosinophils % Basophils % Absolute Neutrophils Absolute Lymphocytes Absolute Monocytes Absolute Eosinophils Absolute Basophils Sodium 144.4 Potassium 3.2 L Chloride 103 Carbon Dioxide 25 Anion Gap 16 BUN 13 Creatinine 1.02 Est GFR ( Amer) > 60 Est GFR (Non-Af Amer) > 60 Glucose 142 H Calcium 9.0 Magnesium Impressions: Chest X-Ray 01/22/17 00:00 IMPRESSION: 1. No evidence of acute cardiopulmonary abnormality. 2. Interval placement of a right central vascular access catheter which terminates in the region of the right atrium. Assessment & Plan - Diagnosis (1) Drug induced neutropenia Is this a current diagnosis for this admission?: Yes Plan: Still believe most likely drug induced, but having path review smear and if blasts noted, will need to transfer pt to tertiary center that treats leukemia, but this would be unlikely. Con't neupogen for now and cefepime until ANC >1000. - Time Time Spent with patient: 15-24 minutes Critical Time spent with patient: 15-24 minutes
[2017-01-25 09:39] LABS: PARVOVIRUS B19 IGG AB 1.5 index (0.0-0.8); PARVOVIRUS B19 IGM AB 0.1 index (0.0-0.8)
[2017-01-25] MEDS: CYCLOBENZAPRINE HCL 10 MG TABLET PO SCH (10:04)
[2017-01-25] MEDS: FLUTICASONE NASAL SPRAY 50 MCG/SPRY 120 SPRAY/16 GM NASL SCH ×2 (10:05→21:39)
[2017-01-25] MEDS: FILGRASTIM INJ 480 MCG/1.6 ML VIAL SUBCUT SCH (10:05)
[2017-01-25] MEDS: GUAIFENESIN 600 MG TABLET.SA PO SCH ×2 (10:05→21:39)
[2017-01-25] MEDS: LUBIPROSTONE 24 MCG CAPSULE PO SCH ×2 (10:06→21:39)
[2017-01-25] MEDS: MULTIVITAMIN TABLET PO SCH (10:06)
[2017-01-25] MEDS: HYDROCHLOROTHIAZIDE 25 MG TABLET PO SCH (10:06)
[2017-01-25] MEDS: METHYLDOPA 250 MG TABLET PO SCH (10:07)
[2017-01-25] MEDS: LEVOTHYROXINE SODIUM 0.1 MG TABLET PO SCH (10:08)
[2017-01-25] MEDS: LEVOTHYROXINE SODIUM 0.075 MG TABLET PO SCH (10:08)
[2017-01-25] MEDS: ESCITALOPRAM OXALATE 10 MG TABLET PO SCH (10:08)
[2017-01-25] MEDS: ONDANSETRON HCL INJ/PF 4 MG/2 ML SDV IV PRN ×2 (11:20→21:39)
[2017-01-25] MEDS: OXYCODONE-ACETAMINOPHEN 5-325 MG TABLET PO PRN ×2 (11:33→21:38)
--- NOTE | 2017-01-25 19:37 | PDOC PROGRESS REPORT ---
Subjective Progress Note for:: 01/25/17 Subjective:: 31-year-old female with connective tissue disease on immunosuppressant, admitted with neutropenia. No new complaint today, denies fever or chills, no nausea or vomiting. Heme/onc following. Physical Exam Vital Signs: Temp Pulse Resp BP Pulse Ox 97.9 F 106 H 18 114/79 95 01/25/17 15:40 01/25/17 15:40 01/25/17 15:40 01/25/17 15:40 01/25/17 15:40 Intake & Output 01/24/17 01/25/17 01/26/17 06:59 06:59 06:59 Intake Total 2350 1044 1530 Balance 2350 1044 1530 Weight 88.5 kg 89 kg Exam: GENERAL: Well-developed, no acute distress CARDIOVASCULAR: RRR, normal S1-S2 LUNGS: CTA bilaterally ABDOMEN: Soft, NT, NL bowel sounds EXTREMITIES: No edema, clubbing, cyanosis NEUROLOGICAL: Alert, oriented x 3, nonfocal Results Laboratory Results: 01/25/17 06:00 01/25/17 06:00 01/25/17 01/25/17 01/25/17 06:00 06:00 06:00 WBC 4.7 RBC 4.38 Hgb 13.6 Hct 38.9 MCV 89 MCH 31.0 MCHC 34.9 RDW 13.3 Plt Count 197 Seg Neutrophils % Not Reportable Lymphocytes % Not Reportable Monocytes % Not Reportable Eosinophils % Not Reportable Basophils % Not Reportable Absolute Neutrophils Not Reportable Absolute Lymphocytes Not Reportable Absolute Monocytes Not Reportable Absolute Eosinophils Not Reportable Absolute Basophils Not Reportable Sodium 144.4 Potassium 3.2 L Chloride 103 Carbon Dioxide 25 Anion Gap 16 BUN 13 Creatinine 1.02 Est GFR ( Amer) > 60 Est GFR (Non-Af Amer) > 60 Glucose 142 H Calcium 9.0 Magnesium 1.6 Impressions: Chest X-Ray 01/22/17 00:00 IMPRESSION: 1. No evidence of acute cardiopulmonary abnormality. 2. Interval placement of a right central vascular access catheter which terminates in the region of the right atrium. Assessment & Plan - Plan Summary Plan Summary: Assessment: 1. Neutropenic fever 2. Mixed connective tissue disease 3. URI 4. Hypothyroidism 5. Hypothyroidism 6. Hypertension 7. DVT prophylaxis with subcu heparin Plan:. Patient currently on Neupogen, expected to be until ANC 1000 or greater. We will continue current medication management and supportive care. Heme/onc following.
[2017-01-26] MEDS: GABAPENTIN 300 MG CAPSULE PO SCH ×2 (01:02→06:00)
[2017-01-26] MEDS: BUSPIRONE HCL 10 MG TABLET PO SCH (06:00)
[2017-01-26] MEDS: HEPARIN SOD (PORCINE) 5,000 UNIT/ML 1 ML SYRINGE SUBCUT SCH (06:01)
[2017-01-26 08:18] LABS: HEMOGLOBIN 13.3 g/dL (12.0-15.5); HGB HCT DIFFERENCE 1.9; MEAN CORPUSCULAR HGB CONC 35.1 g/dL (32.0-36.0); MEAN CORPUSCULAR VOLUME 88 fl (80-97); RED CELL DISTRIBUTION WIDTH 13.3 % (11.5-14.0)
[2017-01-26 08:22] LABS: WHITE BLOOD COUNT 15.5 10^3/uL (4.0-10.5)
--- NOTE | 2017-01-26 08:35 | PDOC PROGRESS REPORT ---
Subjective Progress Note for:: 01/26/17 Subjective:: Reviewed smear w/ pathology, no blasts, metamyelocytes and myelocytes noted c/w marrow rebound. Awaiting CBC from today. Parvo IgG was + Physical Exam Vital Signs: Temp Pulse Resp BP Pulse Ox 98.0 F 89 14 102/63 93 01/26/17 04:00 01/26/17 04:00 01/26/17 04:00 01/26/17 04:00 01/26/17 04:00 Intake & Output 01/25/17 01/26/17 01/27/17 06:59 06:59 06:59 Intake Total 1044 1850 Output Total 220 Balance 1044 1630 Weight 89 kg 88.3 kg General appearance: PRESENT: no acute distress, well-developed, well-nourished Head exam: PRESENT: atraumatic, normocephalic Eye exam: PRESENT: conjunctiva pink, EOMI, PERRLA. ABSENT: scleral icterus Ear exam: PRESENT: normal external ear exam Mouth exam: PRESENT: moist, tongue midline Neck exam: ABSENT: carotid bruit, JVD, lymphadenopathy, thyromegaly Respiratory exam: PRESENT: clear to auscultation alex. ABSENT: rales, rhonchi, wheezes Cardiovascular exam: PRESENT: RRR. ABSENT: diastolic murmur, rubs, systolic murmur Pulses: PRESENT: normal dorsalis pedis pul Vascular exam: PRESENT: normal capillary refill GI/Abdominal exam: PRESENT: normal bowel sounds, soft. ABSENT: distended, guarding, mass, organolmegaly, rebound, tenderness Rectal exam: PRESENT: deferred Extremities exam: PRESENT: full ROM. ABSENT: calf tenderness, clubbing, pedal edema Neurological exam: PRESENT: alert, awake, oriented to person, oriented to place , oriented to time, oriented to situation, CN II-XII grossly intact. ABSENT: motor sensory deficit Psychiatric exam: PRESENT: appropriate affect, normal mood. ABSENT: homicidal ideation, suicidal ideation Skin exam: PRESENT: dry, intact, warm. ABSENT: cyanosis, rash Results Laboratory Results: 01/26/17 08:00 01/25/17 06:00 01/26/17 08:00 WBC 15.5 H D RBC 4.30 Hgb 13.3 Hct 38.0 MCV 88 MCH 31.0 MCHC 35.1 RDW 13.3 Plt Count 188 Seg Neutrophils % Not Reportable Lymphocytes % Not Reportable Monocytes % Not Reportable Eosinophils % Not Reportable Basophils % Not Reportable Absolute Neutrophils Not Reportable Absolute Lymphocytes Not Reportable Absolute Monocytes Not Reportable Absolute Eosinophils Not Reportable Absolute Basophils Not Reportable Impressions: Chest X-Ray 01/22/17 00:00 IMPRESSION: 1. No evidence of acute cardiopulmonary abnormality. 2. Interval placement of a right central vascular access catheter which terminates in the region of the right atrium. Assessment & Plan - Diagnosis (1) Drug induced neutropenia Is this a current diagnosis for this admission?: Yes Plan: Cont neupogen until ANC>1000, once that is attained, d/c IV atbx, transition to oral, maybe augmentin, and d/c home. She may need 1-2 more days to get to this measure. - Time Time Spent with patient: 25-34 minutes Critical Time spent with patient: 25-34 minutes - Inpatient Certification Based on my medical assessment, after consideration of the patient's comorbidities, presenting symptoms, or acuity I expect that the services needed warrant INPATIENT care.: Yes I certify that my determination is in accordance with my understanding of Medicare's requirements for reasonable and necessary INPATIENT services [42 CFR 412.3e].: Yes Medical Necessity: Need for IV Antibiotics, Risk of Complication if Not Cared For in Hospital
[2017-01-26 08:45] LABS: BAND NEUTROPHILS % (MANUAL) 12 % (3-5); BASOPHILS % (MANUAL) 0 % (0-2); EOSINOPHILS % (MANUAL) 2 % (0-6); LYMPHOCYTES % (MANUAL) 12 % (13-45); TOTAL CELLS COUNTED 100
[2017-01-26 08:46] LABS: OVALOCYTES 1+; POIKILOCYTOSIS 1+; POLYCHROMASIA SLIGHT; TOXIC GRANULATION 2+; TOXIC VACUOLATION PRESENT
[2017-01-26 08:47] VITALS: BP 112/66
[2017-01-26] MEDS: CEFEPIME 1 GM/D5W RTU 1 GM/50 ML RTUPB IV SCH (09:54)
[2017-01-26] MEDS: GUAIFENESIN 600 MG TABLET.SA PO SCH (09:55)
[2017-01-26] MEDS: LEVOTHYROXINE SODIUM 0.1 MG TABLET PO SCH (09:56)
[2017-01-26] MEDS: ESCITALOPRAM OXALATE 10 MG TABLET PO SCH (09:56)
[2017-01-26] MEDS: HYDROCHLOROTHIAZIDE 25 MG TABLET PO SCH (09:56)
[2017-01-26] MEDS: MULTIVITAMIN TABLET PO SCH (09:56)
[2017-01-26] MEDS: LEVOTHYROXINE SODIUM 0.075 MG TABLET PO SCH (09:57)
[2017-01-26] MEDS: CYCLOBENZAPRINE HCL 10 MG TABLET PO SCH (09:57)
[2017-01-26] MEDS: LUBIPROSTONE 24 MCG CAPSULE PO SCH (09:58)
[2017-01-26] MEDS: METHYLDOPA 250 MG TABLET PO SCH (09:58)
[2017-01-26] MEDS: FLUTICASONE NASAL SPRAY 50 MCG/SPRY 120 SPRAY/16 GM NASL SCH (09:58)
[2017-01-26] MEDS: FILGRASTIM INJ 480 MCG/1.6 ML VIAL SUBCUT SCH (09:58)
[2017-01-26 12:07] LABS: PATH REVIEW PATHOLOGIST REVIEWED
--- NOTE | 2017-01-26 15:55 | PDOC DISCHARGE SUMMARY ---
General - Admit/Disc Date/PCP Admission Date/Primary Care Provider: 01/20/17 21:24 Discharge Date: 01/26/17 - Discharge Diagnosis (1) Acquired immunocompromised state Is this a current diagnosis for this admission?: Yes (2) Drug induced neutropenia Is this a current diagnosis for this admission?: Yes (3) Hypertension Is this a current diagnosis for this admission?: Yes (4) Hypokalemia Is this a current diagnosis for this admission?: Yes (6) Mixed connective tissue disease Is this a current diagnosis for this admission?: Yes (7) URI (upper respiratory infection) Is this a current diagnosis for this admission?: Yes - Additional Information Resuscitation Status: Full Code Discharge Diet: As Tolerated Discharge Activity: Activity As Tolerated Home Medications: Alprazolam [Xanax 0.5 mg Tablet] 0.5 mg PO Q12HP PRN 01/21/17 Buspirone HCl [Buspar 15 mg Tablet] 15 mg PO Q8 01/21/17 Cyclobenzaprine HCl [Flexeril 10 mg Tablet] 10 mg PO DAILY 01/21/17 Gabapentin [Neurontin] 600 mg PO Q6 01/21/17 Hydrochlorothiazide [Hydrodiuril 25 mg Tablet] 25 mg PO DAILY 01/21/17 Leucovorin Calcium [Leucovorin 5 mg Tablet] 10 mg PO SUSA@1000 01/21/17 Levothyroxine Sodium [Synthroid] 175 mcg PO DAILY 01/21/17 Lubiprostone [Amitiza 24 Mcg Capsule] 24 mcg PO Q12 01/21/17 Methotrexate Sodium [Methotrexate] 15 mg PO FR@1000 PRN 01/21/17 Multivitamin [Daily Multiple Vitamin] 1 tab PO DAILY 01/21/17 Naproxen [Naprosyn] 500 mg PO Q12 01/21/17 Norethindrone-E.estradiol-Iron [Lo Loestrin Fe 1-10 Tablet] 1 tab PO DAILY 01/21 Oxycodone HCl/Acetaminophen [Percocet 5-325 mg Tablet] 1 tab PO Q6HP PRN Quetiapine Fumarate [Seroquel Xr] 200 mg PO QHS 01/21/17 Sucralfate [Carafate 1 gm Tablet] 1 gm PO ACHS 01/21/17 Tamsulosin HCl [Flomax 0.4 mg Cap.sr] 0.4 mg PO DAILY 01/21/17 Zaleplon [Sonata] 10 mg PO HSP PRN 01/21/17 Acetaminophen [Tylenol 325 mg Tablet] 650 mg PO Q4HP PRN tablet 01/26/17 Buspirone HCl [Buspar 10 mg Tablet] 15 mg PO Q8 tablet 01/26/17 Escitalopram Oxalate [Lexapro 10 mg Tablet] 40 mg PO DAILY tablet 01/26/17 Levofloxacin [Levaquin 750 mg Tablet] 750 mg PO DAILY #5 tablet 01/26/17 History of Present Illness History of Present Illness: MARGARITO VIRGEN is a 31 year old female with known history of mixed connective disorder on methotrexate and Rituxan was admitted on 01/21/2017 with neutropenic fever she was sent from her primary care physician's office to be evaluated for low white blood cell count of 1.4 on presentation. She reported having been having some upper respiratory tract symptoms. For a detailed history and physical please refer to the previously dictated H&P Hospital Course Hospital Course: 31-year-old female with known history of mixed connective tissue disorder on methotrexate and Rituxan admitted on 01/21/2017 with neutropenic fevers she was sent from her primary care physician's office to be evaluated for low white blood cell count of 1.4 on presentation she reported. She reported having been having some upper respiratory tract infections symptoms;these have resolved since admission. On presentation she was started on empiric IV vancomycin and cefepime. Blood cultures have remained negative to date. She was seen by oncology and started on Neupogen with significant improvement of her white blood cell count. Of note: peripheral IV line was lost during presentation and she did have a central line inserted for the antibiotics. At this point she is being discharged home, and will be on Levofloxacin (PCN allergy). 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, as well as her primary care physician Physical Exam Vital Signs: Temp Pulse Resp BP Pulse Ox 97.9 F 95 18 112/66 97 01/26/17 08:00 01/26/17 08:00 01/26/17 08:00 01/26/17 08:00 01/26/17 08:00 Intake & Output 01/25/17 01/26/17 01/27/17 06:59 06:59 06:59 Intake Total 1044 1850 Output Total 220 Balance 1044 1630 Weight 89 kg 88.3 kg General appearance: PRESENT: no acute distress, cooperative, obese Head exam: PRESENT: atraumatic, normocephalic Eye exam: PRESENT: conjunctiva pink, EOMI, PERRLA Respiratory exam: PRESENT: clear to auscultation alex, symmetrical, unlabored Cardiovascular exam: PRESENT: RRR, +S1, +S2 GI/Abdominal exam: PRESENT: normal bowel sounds, soft. ABSENT: ascites, diminished bowel sounds, distended, firm, guarding, hernia, hyperactive bowel sounds, hypoactive bowel sounds, mass, Lambert's sign, organolmegaly, rebound, rigid, tenderness, other Rectal exam: PRESENT: deferred Extremities exam: PRESENT: full ROM Musculoskeletal exam: PRESENT: full ROM, normal inspection Neurological exam: PRESENT: alert, awake, oriented to person, oriented to time, oriented to situation, reflexes normal, normal gait Psychiatric exam: PRESENT: normal mood Results Laboratory Results: 01/26/17 08:00 01/25/17 06:00 01/26/17 08:00 WBC 15.5 H D RBC 4.30 Hgb 13.3 Hct 38.0 MCV 88 MCH 31.0 MCHC 35.1 RDW 13.3 Plt Count 188 Seg Neutrophils % Not Reportable Lymphocytes % Not Reportable Monocytes % Not Reportable Eosinophils % Not Reportable Basophils % Not Reportable Absolute Neutrophils Not Reportable Absolute Lymphocytes Not Reportable Absolute Monocytes Not Reportable Absolute Eosinophils Not Reportable Absolute Basophils Not Reportable Impressions: Chest X-Ray 01/22/17 00:00 IMPRESSION: 1. No evidence of acute cardiopulmonary abnormality. 2. Interval placement of a right central vascular access catheter which terminates in the region of the right atrium. Qualifiers PATEINT BEING DISCHARGED WITH ANY OF THE FOLLOWING DIAGNOSIS?: No Plan Time Spent: Greater than 30 Minutes
== END 2017-01-26 12:30 | disposition home or self-care (01) | DRG 809 ==
LOC: ER 18:29 → EH 21:13 → UNDOADMOB 21:24 → INTOOBSV 21:24 → OBSVTOIN 21:24 → 5 23:15
PROVIDERS: ADMIT Internal Medicine; ATTEND Internal Medicine
PROC: 02H633Z Insertion of Infusion Device into Right Atrium, Percutaneous Approach (ICD-10-PCS; principal; 2017-01-22)
DX: D70.2 Other drug-induced agranulocytosis (principal); M35.1 Other overlap syndromes; T45.1X5A Adverse effect of antineoplastic and immunosuppressive drugs, initial encounter; Y92.9 Unspecified place or not applicable; J06.9 Acute upper respiratory infection, unspecified; I10 Essential (primary) hypertension; E87.6 Hypokalemia; E03.9 Hypothyroidism, unspecified; E66.9 Obesity, unspecified; D89.9 Disorder involving the immune mechanism, unspecified; Z68.34 Body mass index [BMI] 34.0-34.9, adult; Z79.899 Other long term (current) drug therapy; Z88.0 Allergy status to penicillin; Z90.49 Acquired absence of other specified parts of digestive tract; Z91.040 Latex allergy status; Z88.2 Allergy status to sulfonamides; Z88.8 Allergy status to other drugs, medicaments and biological substances
CPT/HCPCS: 36415; 71010; 80048; 80053; 80202; 81001; 82565; 83735; 85025; 86140; 86308; 86701; 86747; 87040; 94640; 94799; 96361; 96365; 96368; 96372; 99284; C1751; J0692; J1442; J1644; J1885; J2405; J3370; J3490; J7030; J7060; J7620